=== PATIENT | male | born 1965 | race Caucasian/White ===

== ENCOUNTER → 2019-11-20 | Outpatient (CLI) | payer BC, SELFPAY | END | disposition home or self-care (01) | LOC: LABSPEC 11:52 | PROVIDERS: PCP Podiatrist Foot & Ankle Surgery; Referring Provider Family Medicine; Visit Provider Family Medicine | DX: E11.621 Type 2 diabetes mellitus with foot ulcer (principal); L97.509 Non-pressure chronic ulcer of other part of unspecified foot with unspecified severity | CPT/HCPCS: 87070; 87075; 87077; 87101; 87186; 87205 ==

== ENCOUNTER → 2024-05-09 | Outpatient (CLI) | payer BC, SELFPAY | END | disposition home or self-care (01) | LOC: LABSPEC 10:43 | PROVIDERS: PCP Podiatrist Foot & Ankle Surgery; Referring Provider Podiatrist; Visit Provider Podiatrist | DX: L97.522 Non-pressure chronic ulcer of other part of left foot with fat layer exposed (principal) | CPT/HCPCS: 87070; 87075; 87077; 87186; 87205 ==

== ENCOUNTER → 2024-06-07 | Outpatient (CLI) | payer BC, SELFPAY | END | disposition home or self-care (01) | LOC: LABSPEC 10:33 | PROVIDERS: PCP Podiatrist Foot & Ankle Surgery; Referring Provider Podiatrist; Visit Provider Podiatrist | DX: L97.829 Non-pressure chronic ulcer of other part of left lower leg with unspecified severity (principal) | CPT/HCPCS: 87070; 87077; 87186; 87205 ==

== ENCOUNTER → 2024-12-20 | Outpatient (CLI) | payer BC, SELFPAY | END | disposition home or self-care (01) | LOC: LABSPEC 08:42 | PROVIDERS: PCP Podiatrist Foot & Ankle Surgery; Visit Provider Podiatrist | DX: L97.829 Non-pressure chronic ulcer of other part of left lower leg with unspecified severity (principal) | CPT/HCPCS: 87070; 87077; 87186; 87205 ==

== ENCOUNTER → 2025-06-27 | Outpatient (CLI) | payer BC, SELFPAY | END | disposition home or self-care (01) | LOC: LABSPEC 15:28 | PROVIDERS: PCP Podiatrist Foot & Ankle Surgery; Referring Provider Podiatrist; Visit Provider Podiatrist | DX: L97.522 Non-pressure chronic ulcer of other part of left foot with fat layer exposed (principal) | CPT/HCPCS: 87070; 87077; 87186; 87205 ==

== ENCOUNTER → 2025-09-26 | Outpatient (CLI) | payer BC, SELFPAY ==
--- OUTSIDE RECORDS SUMMARY | 2025-09-26 13:14 | XMS RPT_ITS | CCD ---
Author Organization [facility] Care Team Providers Care Compliance Quality Performance Analyst Name Role Phone SARA VELIZ, BJ Smith Primary Care Physician [phone] WOLF DREW DO Primary Care Physician DAMIAN CORTEZ Primary Care Unavailalex e ROBINSON KUMAR PA-C Attending Unavailab le DREW DO, WOLF E Primary Care Unavailable BJ KRAMER Attending Unavailable Sj DPM, Dr. aSmi Smith Primary Care Provider Francine DPM, Dr. Eid Attending Provider [phone] Ragini Escamilla Attending Unavailable Sami Gustafson Primary Care Unavailable Ragini Escamilla Referring Unavailable Ragini Escamilla Attending Unavailable Sami Gustafson Primary Care Unavailable DREW DO, WOLF E Attending Unavailable DREW DO, WOLF E Primary Care Unavailable DREW DO, WOLF E Attending Unavailable DREW DO, WOLF E Primary Care Unavailable DREW DO, WOLF E Attending Unavailable DREW DO, WOLF E Primary Care Unavailable DREW DO, WOLF E Attending Unavailable DREW DO, WOLF E Primary Care Unavailable DREW DO, WOLF E Attending Unavailable DREW DO, WOLF E Primary Care Unavailable DREW DO, WOLF E Attending Unavailable DREW DO, WOLF E Primary Care Unavailable DREW DO, WOLF E Primary Care Unavailable DREW DO, WOLF E Attending Unavailable DREW DO, WOLF E Primary Care Unavailable DREW DO, WOLF E Attending Unavailable DREW DO, WOLF E Primary Care Unavailable DREW DO, WOLF E Attending Unavailable DREW DO, WOLF E Attending Unavailable DREW DO, WOLF E Primary Care Unavailable Medications Current Medications Medication Drug Class(es) Dates Sig (Normalized) Sig (Original) Blood Glucose Test Machine (10 sources) Start: 10-28-2019 Blood Glucose Test Machine See Instructions, Use as directed Brand type per insurance or patient preference; dx E11.9, # 1 EA, 0 Refill(s), Pharmacy: [facility]/pharmacy #[id number] Start Date: 10/28/19 Status: Ordered Medication Dispense Status: Completed Quantity: 1.0 Unit: EA Total Allowed Fills: 1 Fills Dispensed: 0 Start: 10-28-2019 Blood Glucose Test Machine See Instructions, Use as directed Brand type per insurance or patient preference; dx E11.9, # 1 EA, 0 Refill(s), [id number] Start Date: 10/28/19 Status: Ordered Quantity: 1.0 Unit: EA Repeat number: 1 Start: 10-28-2019 Blood Glucose Test Machine See Instructions, Use as directed Brand type per insurance or patient preference; dx E11.9, # 1 EA, 0 Refill(s), [id number] Start Date: 10/28/19 Status: Ordered Calcium (2 sources) Phosphate Binder, Calcium Start: 04-24-2025 calc ium (as carbonate) 500 mg oral tablet 0 Refill(s) Start Date: 04/24/25 Status: Ordered Medication Dispense Status: Completed Total Allowed Fills: 1 Fills Dispensed: 0 Start: 04-24-2025 calcium (as ca rbonate) 500 mg oral tablet 0 Refill(s) Start Date: 04/24/25 Status: Ordered Repeat number: 1 cephalexin 500 mg oral tablet (3 sources) Cephalosporin Antibacterial Start: 04-24-2025 take 1 tablet by mouth twice daily cephalexin 500 mg oral tablet TAKE 1 TABLET BY MOUTH TWICE A DAY Start Date: 04/24/25 Status: Ordered Medication Dispense Status: Completed Total Allowed Fills: 1 Fills Dispensed: 0 Start: 06-03-2022 End: 06-13-2022 cephalexin 500 mg oral capsu le Dose : 500 mg = 1 cap(s), Oral, QID, X 10 day(s), # 40 cap(s), 0 Refill(s), 06/13/22 7:54:00 EDT, [id number], Infected abrasion of skin of right middle finger, 177.8, cm, 06/03/22 7:27:00 EDT, Height, 82 Start Date: 06/03/22 Stop Date: 06/13/22 Status: Ordered doxycycline hyclate 100 mg oral tablet (2 sources) Tetracycline-class Drug Start: 04-24-2025 take 1 tablet by mouth twice daily DOXYCYCLINE HYCLATE 100 MG TAB DOXYCYCLINE HYCLATE 100 MG TAB, TAKE 1 TABLET BY MOUTH TWICE A DAY Start Date: 04/24/25 Status: Ordered Medication Dispense Status: Completed Total Allowed Fills: 1 Fills Dispensed: 0 empagliflozin 25 mg oral tablet (10 sources) Sodium-Glucose Cotransporter 2 Inhibitor Start: 04-24-2025 Jardiance 25 mg oral tablet Dose : 25 mg = 1 tab(s), Oral, qAM, # 100 tab(s), 1 Refill(s), [id number], 180, cm, 04/24/25 8:24:00 EDT, Height, kg, 04/24/25 8:24:00 EDT, Dosing Weight Start Date: 04/24/25 Status: Ordered Medication Dispense Status: Completed Quantity: 100.0 Unit: tab(s) Total Allowed Fills: 2 Fills Dispensed: 0 Start: 01-23-2025 Jardiance 25 m g oral tablet Dose : 25 mg = 1 tab(s), Oral, qAM, # 100 tab(s), 1 Refill(s), [id number], 178, cm, 01/23/25 11:44:00 EDT, Height, kg, 01/23/25 11:44:00 EDT, Dosing Weight Start Date: 01/23/25 Status: Ordered Quantity: 100.0 Unit: tab(s) Repeat number: 2 Start: 11-20-2024 Jardiance 25 m g oral tablet Dose : 25 mg = 1 tab(s), Oral, qAM, # 30 tab(s), 1 Refill(s), Pharmacy: [facility]/pharmacy #[id number], 181.3, cm, 10/16/24 9:24:00 EST, Height, kg, 10/16/24 9:24:00 EST, Dosing Weight Start Date: 11/20/24 Status: Ordered Quantity: 30.0 Unit: tab(s) Repeat number: 2 Start: 07-18-2024 End: 09-16-2024 Jardiance 10 mg oral tablet Dose : 10 mg = 1 tab(s), Oral, qAM, X 30 day(s), # 30 tab(s), 1 Refill(s), 09/16/24 12:06:00 AM EST, [id number], 180, cm, 09/17/23 10:19:00 EST, Height, kg, 04/17/24 13:55:00 EDT, Dosing Weight Start Date: 07/18/24 Stop Date: 09/16/24 Status: Ordered Start: 07-19-2023 Jardiance 10 m g oral tablet Dose : 10 mg = 1 tab(s), Oral, qAM, # 90 tab(s), 0 Refill(s), [id number], 180, cm, 07/09/23 10:16:00 EDT, Height, kg, 07/09/23 10:16:00 EDT, Dosing Weight Start Date: 07/19/23 Status: Ordered Start: 03-25-2021 take 1 tablet by ruslan th once daily in the morning Jardiance 10 mg oral tablet See Instructions, TAKE 1 TABLET BY MOUTH EVERY DAY IN THE MORNING, # 90 tab(s), 3 Refill(s), [id number], 177.8, cm, 03/09/22 11:33:00 EDT, Height, kg, 03/09/22 11:33:00 EDT, Dosing Weight Start Date: 03/10/22 Status: Ordered FreeStyle Chiquis 3 Sensor (6 sources) Start: 04-17-2024 FreeStyle Libr e 3 Sensor See Instructions, Place once sensor to the back of the upper arm every 14 days. Use reader or phone ethan for daily blood sugar checks. 1 month supply, # 2 EA, 0 Refill(s), [id number], Type 2 diabetes mellitus with hyperlipidemia, 180, cm, 09/17/23 10:19:00 EST, Height, 84.3, kg, 04/17/24 13:55:00 EDT, Dosing Weight Start Date: 04/17/24 Status: Ordered Medication Dispense Status: Completed Quantity: 2.0 Unit: EA Total Allowed Fills: 1 Fills Dispensed: 0 Indications: Type 2 diabetes mellitus with other specified complication; Start: 04-17-2024 FreeStyle Libr e 3 Sensor See Instructions, Place once sensor to the back of the upper arm every 14 days. Use reader or phone ethan for daily blood sugar checks. 1 month supply, # 2 EA, 0 Refill(s), [id number], Type 2 diabetes mellitus with hyperlipidemia, 180, cm, 09/17/23 10:19:00 EST, Height, 84.3, kg, 04/17/24 13:55:00 EDT, Dosing Weight Start Date: 04/17/24 Status: Ordered Quantity: 2.0 Unit: EA Repeat number: 1 Indications: Type 2 diabetes mellitus with other specified complication; Start: 04-17-2024 FreeStyle Libr e 3 Sensor See Instructions, Place once sensor to the back of the upper arm every 14 days. Use reader or phone ethan for daily blood sugar checks. 1 month supply, # 2 EA, 0 Refill(s), [id number], Type 2 diabetes mellitus with hyperlipidemia, 180, cm, 09/17/23 10:19:00 EST, Height, 84.3, kg, 04/17/24 13:55:00 EDT, Dosing Weight Start Date: 04/17/24 Status: Ordered Quantity: 2.0 Unit: EA Repeat number: 1 Indication: Type 2 diabetes mellitus with other specified complication Start: 04-17-2024 FreeStyle Libr e 3 Sensor See Instructions, Place once sensor to the back of the upper arm every 14 days. Use reader or phone ethan for daily blood sugar checks. 1 month supply, # 2 EA, 0 Refill(s), [id number], Type 2 diabetes mellitus with hyperlipidemia, 180, cm, 09/17/23 10:19:00 EST, Height, 84.3, kg, 04/17/24 13:55:00 EDT, Dosing Weight Start Date: 04/17/24 Status: Ordered irbesartan 150 mg oral tablet (5 sources) Angiotensin 2 Receptor Tashi Start: 04-24-2025 irbesartan 150 mg or al tablet Dose : 150 mg = 1 tab(s), Oral, qDay, # 100 tab(s), 1 Refill(s), [id number], 180, cm, 04/24/25 8:24:00 EDT, Height, kg, 04/24/25 8:24:00 EDT, Dosing Weight Start Date: 04/24/25 Status: Ordered Medication Dispense Status: Completed Quantity: 100.0 Unit: tab(s) Total Allowed Fills: 2 Fills Dispensed: 0 Start: 01-23-2025 irbesartan 150 mg oral tablet Dose : 150 mg = 1 tab(s), Oral, qDay, # 100 tab(s), 1 Refill(s), [id number], 178, cm, 01/23/25 11:44:00 EDT, Height, kg, 01/23/25 11:44:00 EDT, Dosing Weight Start Date: 01/23/25 Status: Ordered Quantity: 100.0 Unit: tab(s) Repeat number: 2 Start: 12-05-2024 irbesartan 150 mg oral tablet Dose : 150 mg = 1 tab(s), Oral, qDay, # 30 tab(s), 1 Refill(s), [id number], 181.3, cm, 12/05/24 9:32:00 EST, Height, kg, 12/05/24 9:20:00 EST, Dosing Weight Start Date: 12/05/24 Status: Ordered Quantity: 30.0 Unit: tab(s) Repeat number: 2 lisinopril 10 mg oral tablet (2 sources) Angiotensin Converting Enzyme Inhibitor Start: 04-17-2024 lisinopril 10 mg ora l tablet Dose : 10 mg = 1 tab(s), Oral, qDay, # 100 tab(s), 0 Refill(s), [id number], Hypertension, 180, cm, 09/17/23 10:19:00 EST, Height, kg, 04/17/24 13:55:00 EDT, Dosing Weight Start Date: 04/17/24 Status: Ordered Start: 07-09-2023 lisinopril 10 mg oral tablet Dose : 10 mg = 1 tab(s), Oral, qDay, # 30 tab(s), 3 Refill(s), [id number], Hypertension, 180, cm, 07/09/23 10:16:00 EDT, Height, kg, 07/09/23 10:16:00 EDT, Dosing Weight Start Date: 07/09/23 Status: Ordered magnesium oxide 250 mg oral tablet (2 sources) Start: 04-24-2025 take 1 tablet by mouth once daily Magnesium 250 mg tablet See Instructions, tab(s) mg Oral qDay, 0 Refill(s) Start Date: 04/24/25 Status: Ordered Medication Dispense Status: Completed Total Allowed Fills: 1 Fills Dispensed: 0 metFORMIN hydrochloride 500 mg oral tablet (10 sources) Biguanide Start: 01-23-2025 metFORMIN 500 mg oral tablet (IR) Dose : 1,000 mg = 2 tab(s), Oral, BID, # 400 tab(s), 1 Refill(s), [id number], 178, cm, 01/23/25 11:44:00 EDT, Height, kg, 01/23/25 11:44:00 EDT, Dosing Weight Start Date: 01/23/25 Status: Ordered Medication Dispense Status: Completed Quantity: 400.0 Unit: tab(s) Total Allowed Fills: 2 Fills Dispensed: 0 Start: 08-18-2024 metFORMIN 500 mg oral tablet (IR) Dose : 1,000 mg = 2 tab(s), Oral, BID, # 400 tab(s), 0 Refill(s), [id number], 180.5, cm, 08/18/24 9:53:00 EST, Height, kg, 08/18/24 9:53:00 EST, Dosing Weight Start Date: 08/18/24 Status: Ordered Quantity: 400.0 Unit: tab(s) Repeat number: 1 Start: 04-17-2024 metFORMIN 500 mg oral tablet (IR) Dose : 500 mg = 1 tab(s), Oral, BID, # 200 tab(s), 0 Refill(s), [id number], 180, cm, 09/17/23 10:19:00 EST, Height, kg, 04/17/24 13:55:00 EDT, Dosing Weight Start Date: 04/17/24 Status: Ordered Start: 06-23-2023 metFORMIN 500 mg oral tablet (IR) Dose : 500 mg = 1 tab(s), Oral, BID, # 180 tab(s), 3 Refill(s), Pharmacy: [facility]/pharmacy #[id number], 177.8, cm, 03/31/23 11:22:00 EDT, Height, kg, 03/31/23 11:22:00 EDT, Dosing Weight Start Date: 06/23/23 Status: Ordered Start: 06-03-2022 metFORMIN 500 mg oral tablet (IR) Dose : 500 mg = 1 tab(s), Oral, BID, 0 Refill(s) Start Date: 06/03/22 Status: Ordered Start: 09-23-2021 End: 12-22-2021 metFORMIN 500 mg oral tablet (IR) Dose : 1,500 mg = 3 tab(s), Oral, qDay, 2 tabs in am and 1 tab in pm with meals, # 270 tab(s), 0 Refill(s), Pharmacy: [facility]/pharmacy #[id number], 177.8, cm, 03/25/21 7:47:00 EDT, Height, kg, 03/25/21 7:47:00 EDT, Dosing Weight Start Date: 09/23/21 Stop Date: 12/22/21 Status: Ordered policosanol (5 sources) Start: 12-05-2024 Policosanol Po licosanol, See Instructions, TID, 0 Refill(s), 84.7 Start Date: 12/05/24 Status: Ordered Medication Dispense Status: Completed Total Allowed Fills: 1 Fills Dispensed: 0 Start: 12-05-2024 Policosanol Po licosanol, See Instructions, TID, 0 Refill(s), 84.7 Start Date: 12/05/24 Status: Ordered Repeat number: 1 sulfamethoxazole 800 mg / trimethoprim 160 mg oral tablet (1 source) Dihydrofolate Reductase Inhibitor Antibacterial, Sulfonamide Antimicrobial Start: 06-03-2022 End: 06-13-2022 take 1 tablet by mouth twice daily Bactrim DS 800 mg-160 mg oral tablet Dose = 1 tab(s), Oral, BID, X 10 day(s), # 20 tab(s), 0 Refill(s), Pharmacy: [facility]/pharmacy #[id number], 177.8, cm, 06/03/22 7:27:00 EDT, Height, 82 Start Date: 06/03/22 Stop Date: 06/13/22 Status: Ordered Vitamin D3 (2 sources) Start: 04-24-2025 Vitamin D3 See Instructions, qDay, 0 Refill(s) Start Date: 04/24/25 Status: Ordered Medication Dispense Status: Completed Total Allowed Fills: 1 Fills Dispensed: 0 Start: 04-24-2025 Vitamin D3 See Instructions, qDay, 0 Refill(s) Start Date: 04/24/25 Status: Ordered Repeat number: 1 Webcol Alcohol Preps 70% topical pad (10 sources) Start: 04-17-2024 apply 70 doses topically once Webcol Alcohol Preps 70% topical pad See Instructions, test BGT 1x/d, dispense #50, 11 refills; dx E11.9, # 50 EA, 0 Refill(s), [id number], 180, cm, 09/17/23 10:19:00 EST, Height, kg, 04/17/24 13:55:00 EDT, Dosing Weight Start Date: 04/17/24 Status: Ordered Medication Dispense Status: Completed Quantity: 50.0 Unit: EA Total Allowed Fills: 1 Fills Dispensed: 0 Start: 04-17-2024 Webcol Alcohol Preps 70% topical pad See Instructions, test BGT 1x/d, dispense #50, 11 refills; dx E11.9, # 50 EA, 0 Refill(s), [id number], 180, cm, 09/17/23 10:19:00 EST, Height, kg, 04/17/24 13:55:00 EDT, Dosing Weight Start Date: 04/17/24 Status: Ordered Quantity: 50.0 Unit: EA Repeat number: 1 Start: 04-17-2024 Webcol Alcohol Preps 70% topical pad See Instructions, test BGT 1x/d, dispense #50, 11 refills; dx E11.9, # 50 EA, 0 Refill(s), [id number], 180, cm, 09/17/23 10:19:00 EST, Height, kg, 04/17/24 13:55:00 EDT, Dosing Weight Start Date: 04/17/24 Status: Ordered Start: 10-28-2019 Webcol Alcohol Preps 70% topical pad See Instructions, test BGT 1x/d, dispense #50, 11 refills; dx E11.9, # 50 EA, 0 Refill(s), Pharmacy: [facility]/pharmacy #[id number] Start Date: 10/28/19 Status: Ordered Zinc (2 sources) Start: 04-24-2025 Zinc Daily, 0 Refill(s) Start Date: 04/24/25 Status: Ordered Medication Dispense Status: Completed Total Allowed Fills: 1 Fills Dispensed: 0 Start: 04-24-2025 Zinc Daily, 0 Refill(s) Start Date: 04/24/25 Status: Ordered Repeat number: 1 Problems Active Problems Problem Classification Problem Date Documented Date Episodic/Chronic Chronic ulcer of skin (2 sources) Non-pressure chronic ulcer of other part of left foot with fat layer exposed; Translations: [Non-pressure chronic ulcer of other part of left lower leg with unspecified severity] Onset: 5 Chronic Diabetes mellitus with complications (6 sources) Complication due to diabetes mellitus; Translations: [Type 2 diabetes mellitus with other specified complication] Onset: 5 Chronic Diabetes mellitus without complication (11 sources) Diabetes mellitus; Translations: [Type 2 diabetes mellitus] 12-06-2019 Chronic Disorders of lipid metabolism (6 sources) Pure hypercholesterolemia 04-17-2024 Chroni c Essential hypertension (9 sources) Essential hypertension; Translations: [Hypertensive disorder] Onset: 5 04-17-2024 Chronic Other aftercare (1 source) Long-term current use of oral hypoglycemic medication; 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] Episodic Other aftercare (1 source) Long-term current use of drug therapy; Translations: [Other meterman (current) drug therapy] Episodic Other aftercare (1 source) Drug monitoring done; Translations: [Encounter for therapeutic drug level monitoring] Episodic Other ear and sense organ disorders (7 sources) Impacted cerumen 03-31-2023 Episodic Other eye disorders (2 sources) Hemorrhage of right vitreous body 04-24-2025 Chronic Other screening for suspected conditions (not mental disorders or infectious disease) (3 sources) Encounter for screening for malignant neoplasm of colon; Translations: [Viral screening status] Onset: 3 Episodic Retinal detachments; defects; vascular occlusion; and retinopathy (2 sources) 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 04-24-2025 Chronic Unclassified (14 sources) Patient encounter status 03-31-2023 Past or Other Problems Problem Classification Problem Date Documented Da te Episodic/Chronic Fluid and electrolyte disorders (6 sources) Hyperkalemia; Translations: [Hyperkalemia] Onset: 04-24-2025 01-23-2025 Episodic Genitourinary symptoms and ill-defined conditions (6 sources) Grade A3 albuminuria; Translations: [Proteinuria, unspecified] Onset: 04-24-2025 01-23-2025 Episodic Other aftercare (1 source) [facility] (current) use of oral hypoglycemic drugs; 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] Onset: 03-09-2025 Episodic Other aftercare (1 source) Other meterman (current) drug therapy; Translations: [Other meterman (current) drug therapy] Onset: 03-09-2025 Episodic Other aftercare (1 source) Encounter for therapeutic drug level monitoring; Translations: [Encounter for therapeutic drug level monitoring] Onset: 03-09-2025 Episodic Results Test Name Value Interpretation Reference Range Facility Wound Cultureon 06-29-2025 WC Staphylococcus aureu s Amount Growth 3+ Staphylococcus aureus: REACTION cefOXitin Susc Islt Doxycycline Islt YESICA >=16 R Clindamycin Islt YESICA 0.25 S Clindamycin.induced Susc Islt NEG Erythromycin Islt YESICA <=0.25 S Gentamicin Islt YESICA <=0.5 S Linezolid Islt YESICA 2 S Moxifloxacin Islt YSEICA <=0.25 S Oxacillin Susc Islt <=0.25 S Tetracycline Islt YESICA >=16 R TMP SMX Islt YESICA <=10 S Vancomycin Islt YESICA 1 S Normal [facility] Comment on above: Performed By: #### M 100.3000, #### [facility] [address] [place], [place], [id number] Gram Stainon 06-28-2025 GS Gram Stain Rare Epithelial cells Rare Gram positive cocci Rare White Blood Cells Normal [facility] Comment on above: Performed By: #### M 100.3000, #### [facility] [address] [place], [place], [address] .GFRon 04-24-2025 Estimated Glomerular Filtration Rate 92 ml/min/1.73sqm Normal [facility] Comment on above: Result Comment: Stages of Chronic Kidney Disease (CKD) Stage Description eGFR(ml/min/1.73 sq.m.) CKD 1 Normal kidney function or >=90 normal kindney function with possible kidney damage (ex. Proteinuria) CKD 2 Kidney damage with mild loss 60-89 of kidney function CKD 3a Mild to moderate loss of kidney 45-59 function CKD 3b Moderate to severe loss of 30-44 of kindey function CKD 4 Severe loss of kidney function 15-29 CKD 5 Kidney failure <15 Note: (go live 2024) the eGFR calculation was updated to the 2020 CKD-EPI creatinine equation without a race factor to calculate the eGFR results. Performed By: #### 1 [id number] #### [place] [address] #### CPEP #### [address] [address] BMPon 04-24-2025 BUN/Creatinine Ratio 41 ratio High 7-27 [facility] Comment on above: Performed By: #### 1 [id number] #### [place] [address] #### CPEP #### [address] [address] Calcium [Mass/Vol] 9.4 mg/dL Normal 8.4-10.2 [facility] Comment on above: Performed By: #### 1 [id number] #### [place] [address] #### CPEP #### [address] [address] Chloride [Moles/Vol] 103 mmol/L Normal 98-107 [facility] Comment on above: Performed By: #### 1 [id number] #### [place] [address] #### CPEP #### [address] [address] CO2 [Moles/Vol] 25 mmol/L Normal 22-29 [facility] Comment on above: Performed By: #### 1 [id number] #### [address] [place] [address] #### CPEP #### [address] [address] Creatinine [Mass/Vol] 0.96 mg/dL Normal 0.67-1.17 [facility] Comment on above: Performed By: #### 1 [address]9743 #### [address] [address] #### CPEP #### [address] [address] Electrolyte Balance 11.0 mEq/L Normal 4.0-15.0 [facility] Comment on above: Performed By: #### 1 [id number] #### [place] [address] #### CPEP #### [address] [address] Glucose [Mass/Vol] 140 mg/dL High 70-105 [facility] Comment on above: Performed By: #### 1 [id number] #### [place] [address] #### CPEP #### [address] [address] Potassium [Moles/Vol] 4.7 mmol/L Normal 3.5-5.1 [facility] Comment on above: Performed By: #### 1 [id number] #### [place] [address] #### CPEP #### [address] [address] Sodium [Moles/Vol] 139 mmol/L Normal 136-145 [facility] Comment on above: Performed By: #### 1 [address]1410 #### [place] [address] #### CPEP #### [address] [address] Urea nitrogen [Mass/Vol] 39 mg/dL High 7-18 [facility] Comment on above: Performed By: #### 1 [id number] #### [address], [place] [address] #### CPEP #### [facility] [address] [place] [address] LABORATORYOrdered By: [employer] on 04-24-2025 Calcium [Mass/Vol] 9.4 mg/dL Normal 8.4 - 10. 2 mg/dL AO ADM SS Chloride [Moles/Vol] 103 mmol/L Normal 98 - 10 7 mmol/L AO [facility] CO2 [Moles/Vol] 25 mmol/L Normal 22 - 29 mmol/L [facility] Creatinine [Mass/Vol] 0.96 mg/dL Normal 0.67 - 1.17 mg/dL AO [facility] Electrolyte Balance 11.0 mEq/L Normal 4.0 - 15 .0 mEq/L AO [facility] Estimated Glomerular Filtration Rate 92 ml/min/1.73sqm Invalid Interpretation Code AO Chemistry S Comment on above: Interpretive Data: Stages of Chronic Kidney Disease (CKD) Stage Description eGFR(ml/min/1.73 sq.m.) CKD 1 Normal kidney function or >=90 normal kindney function with possible kidney damage (ex. Proteinuria) CKD 2 Kidney damage with mild loss 60-89 of kidney function CKD 3a Mild to moderate loss of kidney 45-59 function CKD 3b Moderate to severe loss of 30-44 of kindey function CKD 4 Severe loss of kidney function 15-29 CKD 5 Kidney failure <15 Note: (go live 2024) the eGFR calculation was updated to the 2020 CKD-EPI creatinine equation without a race factor to calculate the eGFR results. Glucose [Mass/Vol] 140 mg/dL High 70 - 105 mg/dL [facility] Potassium [Moles/Vol] 4.7 mmol/L Normal 3.5 - 5.1 mmol/L AO [facility] Sodium [Moles/Vol] 139 mmol/L Normal 136 - 145 mmol/L AO [facility] Urea nitrogen [Mass/Vol] 39 mg/dL High 7 - 18 mg/dL [facility] Urea nitrogen/Creatinine [Mass ratio] 41 ratio High 7 - 27 ratio AO ADM SS LABORATORYOrdered By: Emani allison on 03-09-2025 Glucose [Mass/Vol] 205 mg/dL High 70 - 110 mg/dL [facility] HbA1c (Bld) [Mass fraction] 7.6 % [facility] Performed By Emani Lua PharmD [facility] Performing Location [facility] LABORATORYOrdered By: Cas Freeman on 02-27-2025 Cholesterol [Mass/Vol] 241 mg/dL High 0 - 200 mg/dL AO [facility] Comment on above: Interpretive Data: C holesterol Reference Interval: Less than 200 Desirable 200-239 Borderline high risk 240 and above High risk Cholesterol in HDL [Mass/Vol] 74 mg/dL High 40 - 60 mg/dL [facility] Cholesterol in LDL [Mass/Vol] 149 mg/dL High 0 - 130 mg/dL AO [facility] SS Triglyceride [Mass/Vol] 89 mg/dL Normal 0 - 150 mg/dL AO [facility] SS Comment on above: Interpretive Data: T riglyceride Reference Interval: Less than 150 Normal 150-199 Borderline high risk 200-499 High risk 500 or higher Very high risk LIPIDon 02-27-2025 Cholesterol [Mass/Vol] 241 mg/dL High 0-200 [facility] Comment on above: Result Comment: Chol esterol Reference Interval: Less than 200 Desirable 200-239 Borderline high risk 240 and above High risk Performed By: #### 1 27320 #### [address] [address] #### CPEP #### [address] [address] Cholesterol in HDL [Mass/Vol] 74 mg/dL High 40-60 [facility] Comment on above: Performed By: #### 1 91175 #### [address] [address] #### CPEP #### [address] [address] Cholesterol in LDL [Mass/Vol] 149 mg/dL High 0-130 [facility] Comment on above: Performed By: #### 1 99990 #### [address] [address] #### CPEP #### [address] [address] Triglyceride [Mass/Vol] 89 mg/dL Normal 0-150 [facility] Comment on above: Result Comment: Trig lyceride Reference Interval: Less than 150 Normal 150-199 Borderline high risk 200-499 High risk 500 or higher Very high risk Performed By: #### 1 37390 #### [address] [address] #### CPEP #### [address] [address] LABORATORYOrdered By: Ivan Nguyen on 01-23-2025 Glucose [Mass/Vol] 141 mg/dL High 70 - 110 mg/dL [facility] LABORATORYOrdered By: Cas Chester on 01-23-2025 Blood Glucose Frequency Daily (01/23/25 8:07 AM) [facility] LIPOAon 01-15-2025 Lipoprotein a [Moles/Vol] 9.6 nmol/L Normal <75.0 [facility] Comment on above: Result Comment: Note : Values greater than or equal to 75.0 nmol/L may indicate an independent risk factor for CHD, but must be evaluated with caution when applied to non- populations due to the influence of genetic factors on Lp(a) across ethnicities. Performed At: [facility] [id number] Ankur Babcock PhD Ph:[phone] Performed By: #### 1 18352 #### [address] [address] #### CPEP #### [address] [address] .GFRon 01-13-2025 Estimated Glomerular Filtration Rate 47 ml/min/1.73sqm Normal [facility] Comment on above: Result Comment: Stages of Chronic Kidney Disease (CKD) Stage Description eGFR(ml/min/1.73 sq.m.) CKD 1 Normal kidney function or >=90 normal kindney function with possible kidney damage (ex. Proteinuria) CKD 2 Kidney damage with mild loss 60-89 of kidney function CKD 3a Mild to moderate loss of kidney 45-59 function CKD 3b Moderate to severe loss of 30-44 of kindey function CKD 4 Severe loss of kidney function 15-29 CKD 5 Kidney failure <15 Note: (go live 2024) the eGFR calculation was updated to the 2020 CKD-EPI creatinine equation without a race factor to calculate the eGFR results. Performed By: #### 1 23437 #### [address] [address] #### CPEP #### [address] [address] [facility] BUN/Creatinine Ratio 25 ratio Normal 7-27 [facility] Comment on above: Performed By: #### 1 46675 #### [place] [address] #### CPEP #### [address] [address] Calcium [Mass/Vol] 10.0 mg/dL Normal 8.4-10.2 [facility] Comment on above: Performed By: #### 1 02217 #### [address] [address] #### CPEP #### [address] [address] Chloride [Moles/Vol] 103 mmol/L Normal 98-107 [facility] Comment on above: Performed By: #### 1 56167 #### [address] [address] #### CPEP #### [address] [address] CO2 [Moles/Vol] 22 mmol/L Normal 22-29 [facility] Comment on above: Performed By: #### 1 13398 #### [address] [address] #### CPEP #### [address] [address] Creatinine [Mass/Vol] 1.69 mg/dL High 0.70-1.30 [facility] Comment on above: Result Comment: Test ing performed on Siemens Dimension EXL analyzer using a modified kinetic Julia technique. Performed By: #### 1 75457 #### [address] [address] #### CPEP #### [address] [address] Electrolyte Balance 12.0 mEq/L Normal 4.0-15.0 [facility] Comment on above: Performed By: #### 1 55263 #### [address] [address] #### CPEP #### [address] [address] Glucose [Mass/Vol] 164 mg/dL High 70-105 [facility] Comment on above: Performed By: #### 1 92022 #### [place] [address] #### CPEP #### [address] [address] Potassium [Moles/Vol] 5.5 mmol/L High 3.5-5.1 [facility] Comment on above: Performed By: #### 1 24540 #### [address] [address] #### CPEP #### [address] [address] Sodium [Moles/Vol] 137 mmol/L Normal 136-145 [facility] Comment on above: Performed By: #### 1 68492 #### [address] [address] #### CPEP #### [address] [address] Urea nitrogen [Mass/Vol] 42 mg/dL High 7-18 [facility] Comment on above: Performed By: #### 1 28711 #### [place] [address] #### CPEP #### [address] [address] LIPIDon 01-13-2025 Cholesterol [Mass/Vol] 295 mg/dL High 0-200 [facility] Comment on above: Result Comment: Chol esterol Reference Interval: Less than 200 Desirable 200-239 Borderline high risk 240 and above High risk Performed By: #### 1 99024 #### [address] [address] #### CPEP #### [address] [address] Cholesterol in HDL [Mass/Vol] 100 mg/dL High 40-60 [facility] Comment on above: Performed By: #### 1 58537 #### [place] [address] #### CPEP #### [address] [address] Cholesterol in LDL [Mass/Vol] 176 mg/dL High 0-130 [facility] Comment on above: Performed By: #### 1 28586 #### [place] [address] #### CPEP #### [address] [address] Triglyceride [Mass/Vol] 95 mg/dL Normal 0-150 [facility] Comment on above: Result Comment: Trig lyceride Reference Interval: Less than 150 Normal 150-199 Borderline high risk 200-499 High risk 500 or higher Very high risk Performed By: #### 1 93443 #### [place] [address] #### CPEP #### [address] [address] Wound Cultureon 12-23-2024 WC Staphylococcus aureu s Amount Growth 1+ Streptococcus group B Streptococcus group B Staphylococcus aureus: REACTION cefOXitin Susc Islt NEG Doxycycline Islt YESICA <=0.5 Clindamycin Islt YESICA 0.25 S Clindamycin.induced Susc Islt NEG Erythromycin Islt YESICA <=0.25 S Gentamicin Islt YESICA <=0.5 S Linezolid Islt YESICA 2 S Moxifloxacin Islt YESICA <=0.25 S Oxacillin Susc Islt <=0.25 S Tetracycline Islt YESICA <=1 S TMP SMX Islt YESICA <=10 S Vancomycin Islt YESICA <=0.5 S Streptococcus group B: REACTION Ampicillin Islt YESICA <=0.25 S Cefotaxime Islt YESICA <=0.12 cefTRIAXone Islt YESICA <=0.12 S Clindamycin Islt YESICA >=1 R Erythromycin Islt YESICA >=8 R Linezolid Islt YESICA <=2 S Vancomycin Islt YESICA 0.5 S Normal [facility] Comment on above: Performed By: #### M 100.1999, M100.3000 #### [facility] [address] [place], [address] Gram Stainon 12-21-2024 GS Gram Stain 4+ Red Blood Cells 1+ White Blood Cells No organisms seen Normal [facility] Comment on above: Performed By: #### M 100.1999, M100.3000 #### [facility] [address] [place], [address] Gram stainOrdered By: Ragini Escamilla on 12-20-2024 Microscopic observation Gram stain Nom (Unsp spec) [facility] Routine wound cultureOrdered By: Ragini Escamilla on 12-20-2024 Wound Culture Staphylococcus aureus Abnormal [facility] Wound Culture Streptococcus group B Abnormal [facility] TFTESTon 12-12-2024 Free Testost Direct 10.4 pg/mL Normal 7.2-24.0 [facility] Comment on above: Result Comment: Perf ormed At: [facility] [address] [place] [place], [place] [id number] Hardeep Aguayo MD Ph:[phone] Performed At: [facility] [place] [address] [place], [place] [id number] Ankur Babcock PhD Ph:[phone] Performed By: #### 1 40556 #### [address] [address] Testosterone Lvl 476 ng/dL Normal 264-916 [facility] Comment on above: Result Comment: Adul t male reference interval is based on a population of healthy nonobese males (BMI <30) between 19 and 39 years old. Tony, et.al. JCEM 2017,102;5029-7633. PMID: [id number]. Performed By: #### 1 76407 #### [place] [address] LABORATORYOrdered By: Emani allison on 12-11-2024 Glucose [Mass/Vol] 162 mg/dL High 70 - 110 mg/dL [facility] [id number] 12-08-2024 MARGARITO-65 <5.0 Normal 0.0-5.0 [facility] Comment on above: Result Comment: Perf ormed At: [facility] [address] [id number] Hardeep Aguayo MD Ph:[phone] Performed By: #### 1 62216 #### [place] [address] #### CPEP #### [address] [address] MALBRon 12-06-2024 U Creatinine 57.9 mg/dL Normal [facility] Comment on above: Performed By: #### 1 05416 #### [place] [address] #### CPEP #### [address] [address] U Microalb 749.7 mg/L Normal [facility] Comment on above: Performed By: #### 1 82896 #### [address] [address] #### CPEP #### [facility] [address] [place] [address] U Ratio Alb/Cre 1295 mg/G High 0-30 [facility] Comment on above: Performed By: #### 1 00942 #### [address] [address] #### CPEP #### [address] [address] CPEPon 12-05-2024 C-Peptide 1.90 ng/mL Normal 0.81-3.85 [facility] Comment on above: Performed By: #### 1 87425 #### [address] [address] #### CPEP #### [address] [address] LABORATORYOrdered By: SYSTEM SYSTEM on 12-05-2024 C peptide [Mass/Vol] 1.90 ng/mL Normal 0.81 - 3.85 ng/mL AH ADM SS .Auto Diffon 08-07-2024 Basophil, Absolute 0.0 10 3/mcL Normal 0.0-0.2 [facility] Comment on above: Performed By: #### A TEJAS, ADIFF, CBC, PSA, TSHR, LIPID, GFR, CMP, A1C #### [address] [address] Basophils/100 WBC (Bld) 0.6 % Normal 0.0-2.5 [facility] Comment on above: Performed By: #### A TEJAS, ADIFF, CBC, PSA, TSHR, LIPID, GFR, CMP, A1C #### [address] [address] Eosinophil, Absolute 0.3 10 3/mcL Normal 0.0-0.[address] [facility] Comment on above: Performed By: #### A TEJAS, ADIFF, CBC, PSA, TSHR, LIPID, GFR, CMP, A1C #### [address] [address] Eosinophils/100 WBC (Bld) 4.0 % Normal 0.0-7.0 [facility] Comment on above: Performed By: #### A TEJAS, ADIFF, CBC, PSA, TSHR, LIPID, GFR, CMP, A1C #### [address] [address] Lymphocyte, Absolute 1.9 10 3/mcL Normal 0.9-4.[address] [facility] Comment on above: Performed By: #### A TEJAS, ADIFF, CBC, PSA, TSHR, LIPID, GFR, CMP, A1C #### [address] [address] Lymphocytes/100 WBC (Bld) 27.0 % Normal 20.0-40.0 [facility] Comment on above: Performed By: #### A TEJAS, ADIFF, CBC, PSA, TSHR, LIPID, GFR, CMP, A1C #### [address] [address] Monocyte, Absolute 0.7 10 3/mcL Normal 0.1-1.4 [facility] Comment on above: Performed By: #### A TEJAS, ADIFF, CBC, PSA, TSHR, LIPID, GFR, CMP, A1C #### [address] [address] Monocytes/100 WBC (Bld) 9.7 % Normal 2.0-13.0 [facility] Comment on above: Performed By: #### A TEJAS, ADIFF, CBC, PSA, TSHR, LIPID, GFR, CMP, A1C #### [address] [address] Neutrophils/100 WBC (Bld) 58.7 % Normal 50.0-75.0 [facility] Comment on above: Performed By: #### A TEJAS, ADIFF, CBC, PSA, TSHR, LIPID, GFR, CMP, A1C #### [address] [address] .GFRon 08-07-2024 GFR 98 ml/min/1.73sqm Normal [facility] Comment on above: Result Comment: GFR Population mean for , Non- Americans Ages 20-29 = 116 mL/min/1.73 sq.m. Ages 30-39 = 107 mL/min/1.73 sq.m. Ages 40-49 = 99 mL/min/1.73 sq.m. Ages 50-59 = 93 mL/min/1.73 sq.m. Ages 60-69 = 85 mL/min/1.73 sq.m. Ages 70+ = 75 mL/min/1.73 sq.m. Chronic Kidney Disease: Less than 60 mL/min/1.73 square meters End Stage Renal Disease: Less than 15 mL/min/1.73 square meters Performed By: #### A TEJAS, ADIFF, CBC, PSA, TSHR, LIPID, GFR, CMP, A1C #### [address] [address] GFR Non- 81 ml/min/1.73sqm Normal [facility] Comment on above: Result Comment: GFR Population mean for , Non- Americans Ages 20-29 = 116 mL/min/1.73 sq.m. Ages 30-39 = 107 mL/min/1.73 sq.m. Ages 40-49 = 99 mL/min/1.73 sq.m. Ages 50-59 = 93 mL/min/1.73 sq.m. Ages 60-69 = 85 mL/min/1.73 sq.m. Ages 70+ = 75 mL/min/1.73 sq.m. Chronic Kidney Disease: Less than 60 mL/min/1.73 square meters End Stage Renal Disease: Less than 15 mL/min/1.73 square meters Performed By: #### A TEJAS, ADIFF, CBC, PSA, TSHR, LIPID, GFR, CMP, A1C #### [address] [address] .NEUABSon 08-07-2024 Neutrophil, Absolute 4.1 10 3/mcL Normal 2.3-8.[address] [facility] Comment on above: Performed By: #### A TEJAS, ADIFF, CBC, PSA, TSHR, LIPID, GFR, CMP, A1C #### [address] [address] A1Con 08-07-2024 Glucose [Mass/Vol] 192 mg/dL Normal [facility] Comment on above: Result Comment: Bell mated Average Glucose calculated by equation ((28.7xA1C)-46.7) Estimated average glucose (eAG) is a calculated value from Hemoglobin A1C and is media sales representative of the average blood glucose level in the last 2-3 month period. Normal range: less than 114 mg/dL Performed By: #### 1 33451 #### [address] [address] #### CPEP #### [address] [address] HbA1c (Bld) [Mass fraction] 8.3 % High 4.3-6.4 [facility] Comment on above: Performed By: #### 1 19037 #### [address] [address] #### CPEP #### [address] [address] CBCon 08-07-2024 Erythrocyte distribution width (RBC) [Ratio] 15.0 % Normal 11.5-15.5 [facility] Comment on above: Performed By: #### A TEJAS, ADIFF, CBC, PSA, TSHR, LIPID, GFR, CMP, A1C #### [address] [address] Hematocrit (Bld) [Volume fraction] 41.5 % Normal 40.0-52.0 [facility] Comment on above: Performed By: #### A TEJAS, ADIFF, CBC, PSA, TSHR, LIPID, GFR, CMP, A1C #### [address] [address] Hgb 13.6 G/dL Normal 13.0-17.5 [facility] Comment on above: Performed By: #### A TEJAS, ADIFF, CBC, PSA, TSHR, LIPID, GFR, CMP, A1C #### [address] [address] MCH (RBC) [Entitic mass] 26.5 pg Low 27.0-33.0 [facility] Comment on above: Performed By: #### A TEJAS, ADIFF, CBC, PSA, TSHR, LIPID, GFR, CMP, A1C #### [address] [address] MCHC 32.7 G/dL Normal 32.0-36.0 [facility] Comment on above: Performed By: #### A TEJAS, ADIFF, CBC, PSA, TSHR, LIPID, GFR, CMP, A1C #### [address] [address] MCV (RBC) [Entitic vol] 80.9 fL Low 81.0-100.0 [facility] Comment on above: Performed By: #### A TEJAS, ADIFF, CBC, PSA, TSHR, LIPID, GFR, CMP, A1C #### [address] [address] Platelet 278 10 3/mcL Normal 150-450 [facility] Comment on above: Performed By: #### A TEJAS, ADIFF, CBC, PSA, TSHR, LIPID, GFR, CMP, A1C #### [address] [address] Platelet mean volume (Bld) [Entitic vol] 8.7 fL Normal 6.4-10.5 [facility] Comment on above: Performed By: #### A TEJAS, ADIFF, CBC, PSA, TSHR, LIPID, GFR, CMP, A1C #### [address] [address] RBC 5.14 10 6/mcL Normal 4.50-6.00 [facility] Comment on above: Performed By: #### A TEJAS, ADIFF, CBC, PSA, TSHR, LIPID, GFR, CMP, A1C #### [address] [address] WBC 6.9 10 3/mcL Normal 4.5-10.8 [facility] Comment on above: Performed By: #### A TEJAS, ADIFF, CBC, PSA, TSHR, LIPID, GFR, CMP, A1C #### [address] [address] CMPon 08-07-2024 Albumin Level 3.8 G/dL Normal 3.5-5.0 [facility] Comment on above: Performed By: #### A TEJAS, ADIFF, CBC, PSA, TSHR, LIPID, GFR, CMP, A1C #### [address] [address] Albumin/Globulin [Mass ratio] 1.2 {ratio} Normal 1.1-2.5 [facility] Comment on above: Performed By: #### A TEJAS, ADIFF, CBC, PSA, TSHR, LIPID, GFR, CMP, A1C #### [place] [address] ALP [Catalytic activity/Vol] 52 U/L Normal 40-135 [facility] Comment on above: Performed By: #### A TEJAS, ADIFF, CBC, PSA, TSHR, LIPID, GFR, CMP, A1C #### [place] [address] ALT [Catalytic activity/Vol] 20 U/L Normal 16-63 [facility] Comment on above: Performed By: #### A TEJAS, ADIFF, CBC, PSA, TSHR, LIPID, GFR, CMP, A1C #### [place] [address] AST [Catalytic activity/Vol] 11 U/L Normal 10-40 [facility] Comment on above: Performed By: #### A TEJAS, ADIFF, CBC, PSA, TSHR, LIPID, GFR, CMP, A1C #### [place] [address] Bili Total 0.4 mg/dL Normal 0.2-1.0 [facility] Comment on above: Result Comment: Use of this assay is not recommended for patients undergoing treatment with eltrombopag due to the potential for falsely elevated results. Performed By: #### A TEJAS, ADIFF, CBC, PSA, TSHR, LIPID, GFR, CMP, A1C #### [place] [address] BUN/Creatinine Ratio 32 ratio High 7-27 [facility] Comment on above: Performed By: #### A TEJAS, ADIFF, CBC, PSA, TSHR, LIPID, GFR, CMP, A1C #### [place] [address] Calcium [Mass/Vol] 9.4 mg/dL Normal 8.4-10.2 [facility] Comment on above: Performed By: #### A TEJAS, ADIFF, CBC, PSA, TSHR, LIPID, GFR, CMP, A1C #### [address] [address] Chloride [Moles/Vol] 103 mmol/L Normal 98-107 [facility] Comment on above: Performed By: #### A TEJAS, ADIFF, CBC, PSA, TSHR, LIPID, GFR, CMP, A1C #### [address] [address] CO2 [Moles/Vol] 31 mmol/L High 22-29 [facility] Comment on above: Performed By: #### A TEJAS, ADIFF, CBC, PSA, TSHR, LIPID, GFR, CMP, A1C #### [address] [address] Creatinine [Mass/Vol] 0.96 mg/dL Normal 0.70-1.30 [facility] Comment on above: Result Comment: Test ing performed on Siemens Dimension EXL analyzer using a modified kinetic Julia technique. Performed By: #### A TEJAS, ADIFF, CBC, PSA, TSHR, LIPID, GFR, CMP, A1C #### [address] [address] Electrolyte Balance 3.0 mEq/L Low 4.0-15.0 [facility] Comment on above: Performed By: #### A TEJAS, ADIFF, CBC, PSA, TSHR, LIPID, GFR, CMP, A1C #### [address] [address] Globulin 3.1 G/dL Normal [facility] Comment on above: Performed By: #### A TEJAS, ADIFF, CBC, PSA, TSHR, LIPID, GFR, CMP, A1C #### [address] [address] Glucose [Mass/Vol] 189 mg/dL High 70-105 [facility] Comment on above: Performed By: #### A TEJAS, ADIFF, CBC, PSA, TSHR, LIPID, GFR, CMP, A1C #### [address] [address] Potassium [Moles/Vol] 4.7 mmol/L Normal 3.5-5.1 [facility] Comment on above: Performed By: #### A TEJAS, ADIFF, CBC, PSA, TSHR, LIPID, GFR, CMP, A1C #### [address] [address] Sodium [Moles/Vol] 137 mmol/L Normal 136-145 [facility] Comment on above: Performed By: #### A TEJAS, ADIFF, CBC, PSA, TSHR, LIPID, GFR, CMP, A1C #### [place] [address] [place], [place] [address] Total Protein 6.9 G/dL Normal 6.4-8.2 [facility] Comment on above: Performed By: #### A TEJAS, ADIFF, CBC, PSA, TSHR, LIPID, GFR, CMP, A1C #### [place] [address] [place], [place] [address] Urea nitrogen [Mass/Vol] 31 mg/dL High 7-18 [facility] Comment on above: Performed By: #### A TEJAS, ADIFF, CBC, PSA, TSHR, LIPID, GFR, CMP, A1C #### [address] [address] LABORATORYOrdered By: SYSTEM SYSTEM on 08-07-2024 Albumin BCP dye [Mass/Vol] 3.8 G/dL Normal 3.5 - 5.0 G/dL AO ADM SS Albumin/Globulin [Mass ratio] 1.2 {ratio} Normal 1.1 - 2.5 ratio AO ADM SS ALP [Catalytic activity/Vol] 52 U/L Normal 40 - 135 U/L AO ADM SS ALT With P-5'-P [Catalytic activity/Vol] 20 U/L Normal 16 - 63 U/L AO ADM SS AST With P-5'-P [Catalytic activity/Vol] 11 U/L Normal 10 - 40 U/L AO ADM SS Basophils (Bld) [#/Vol] 0.0 103/mcL Normal 0.0 - 0.2 10^3/mcL AO Workflow SS Basophils/100 WBC (Bld) 0.6 % Normal 0.0 - 2.5 % AO Workflow SS Bilirubin [Mass/Vol] 0.4 mg/dL Normal 0.2 - 1 .0 mg/dL AO ADM SS Comment on above: Interpretive Data: U se of this assay is not recommended for patients undergoing treatment with eltrombopag due to the potential for falsely elevated results. Calcium [Mass/Vol] 9.4 mg/dL Normal 8.4 - 10. 2 mg/dL AO ADM SS Chloride [Moles/Vol] 103 mmol/L Normal 98 - 10 7 mmol/L AO ADM SS CO2 [Moles/Vol] 31 mmol/L High 22 - 29 mmol/L AO ADM SS Creatinine [Mass/Vol] 0.96 mg/dL Normal 0.70 - 1.30 mg/dL AO ADM SS Comment on above: Interpretive Data: T esting performed on Siemens Dimension EXL analyzer using a modified kinetic Julia technique. Electrolyte Balance 3.0 mEq/L Low 4.0 - 15 .0 mEq/L AO ADM SS Eosinophil, Absolute 0.3 103/mcL Normal 0.0 - 0 .7 10^3/mcL AO Workflow SS Eosinophils/100 WBC (Bld) 4.0 % Normal 0.0 - 7.0 % AO Workflow SS Erythrocyte distribution width (RBC) [Ratio] 15.0 % Normal 11.5 - 15.5 % AO Workflow SS GFR/1.73 sq M.predicted among blacks MDRD (S/P/Bld) [Vol rate/Area] 98 ml/min/1.73sqm Invalid Interpretation Code AO Chemistry S Comment on above: Interpretive Data: GFR Population mean for , Non- Americans Ages 20-29 = 116 mL/min/1.73 sq.m. Ages 30-39 = 107 mL/min/1.73 sq.m. Ages 40-49 = 99 mL/min/1.73 sq.m. Ages 50-59 = 93 mL/min/1.73 sq.m. Ages 60-69 = 85 mL/min/1.73 sq.m. Ages 70+ = 75 mL/min/1.73 sq.m. Chronic Kidney Disease: Less than 60 mL/min/1.73 square meters End Stage Renal Disease: Less than 15 mL/min/1.73 square meters GFR/1.73 sq M.predicted among non-blacks MDRD (S/P/Bld) [Vol rate/Area] 81 ml/min/1.73sqm Invalid Interpretation Code AO Chemistry S Comment on above: Interpretive Data: GFR Population mean for , Non- Americans Ages 20-29 = 116 mL/min/1.73 sq.m. Ages 30-39 = 107 mL/min/1.73 sq.m. Ages 40-49 = 99 mL/min/1.73 sq.m. Ages 50-59 = 93 mL/min/1.73 sq.m. Ages 60-69 = 85 mL/min/1.73 sq.m. Ages 70+ = 75 mL/min/1.73 sq.m. Chronic Kidney Disease: Less than 60 mL/min/1.73 square meters End Stage Renal Disease: Less than 15 mL/min/1.73 square meters Globulin 3.1 G/dL Invalid Interpretation Code AO ADM SS Glucose [Mass/Vol] 189 mg/dL High 70 - 105 mg/dL AO ADM SS Glucose [Mass/Vol] 192 mg/dL Invalid Interpretation Code AO Chemistry S Comment on above: Interpretive Data: E stimated average glucose (eAG) is a calculated value from Hemoglobin A1C and is media sales representative of the average blood glucose level in the last 2-3 month period. Normal range: less than 114 mg/dL HbA1c (Bld) [Mass fraction] 8.3 % High 4.3 - 6.4 % AO ADM SS Hematocrit (Bld) [Volume fraction] 41.5 % Normal 40.0 - 52.0 % AO Workflow SS Hemoglobin (Bld) [Mass/Vol] 13.6 G/dL Normal 13.0 - 17.5 G/dL AO Workflow SS Lymphocytes (Bld) [#/Vol] 1.9 103/mcL Normal 0.9 - 4.3 10^3/mcL AO Workflow SS Lymphocytes/100 WBC (Bld) 27.0 % Normal 20.0 - 40.0 % AO Workflow SS MCH (RBC) [Entitic mass] 26.5 pg Low 27.0 - 33.0 pg AO Workflow SS MCHC 32.7 G/dL Normal 32.0 - 36.0 G/dL AO Workflow SS MCV (RBC) [Entitic vol] 80.9 fL Low 81.0 - 100.0 fL AO Workflow SS Monocytes (Bld) [#/Vol] 0.7 103/mcL Normal 0.1 - 1.4 10^3/mcL AO Workflow SS Monocytes/100 WBC (Bld) 9.7 % Normal 2.0 - 13.0 % AO Workflow SS Neutrophils (Bld) [#/Vol] 4.1 103/mcL Normal 2.3 - 8.1 10^3/mcL AO Workflow SS Neutrophils/100 WBC (Bld) 58.7 % Normal 50.0 - 75.0 % AO Workflow SS Platelet mean volume (Bld) [Entitic vol] 8.7 fL Normal 6.4 - 10.5 fL AO Workflow SS Platelets (Bld) [#/Vol] 278 103/mcL Normal 150 - 450 10^3/mcL AO Workflow SS Potassium [Moles/Vol] 4.7 mmol/L Normal 3.5 - 5.1 mmol/L AO ADM SS Prostate specific Ag [Mass/Vol] 0.33 ng/mL Normal 0.00 - 4.00 ng/mL AO ADM SS Protein [Mass/Vol] 6.9 G/dL Normal 6.4 - 8.2 G/dL AO ADM SS RBC (Bld) [#/Vol] 5.14 106/mcL Normal 4.50 - 6.0 0 10^6/mcL AO Workflow SS Sodium [Moles/Vol] 137 mmol/L Normal 136 - 145 mmol/L AO ADM SS TSH Qn 3.74 m[IU]/L Normal 0.36 - 3.74 mcIU/mL AO ADM SS Urea nitrogen [Mass/Vol] 31 mg/dL High 7 - 18 mg/dL AO ADM SS Urea nitrogen/Creatinine [Mass ratio] 32 ratio High 7 - 27 ratio AO ADM SS WBC (Bld) [#/Vol] 6.9 103/mcL Normal 4.5 - 10.8 10^3/mcL AO Workflow SS LABORATORYOrdered By: Cas Freeman on 08-07-2024 Cholesterol [Mass/Vol] 247 mg/dL High 0 - 200 mg/dL AO ADM SS Comment on above: Interpretive Data: C holesterol Reference Interval: Less than 200 Desirable 200-239 Borderline high risk 240 and above High risk Cholesterol in HDL [Mass/Vol] 81 mg/dL High 40 - 60 mg/dL AO ADM SS Cholesterol in LDL [Mass/Vol] 149 mg/dL High 0 - 130 mg/dL AO ADM SS Triglyceride [Mass/Vol] 84 mg/dL Normal 0 - 150 mg/dL AO ADM SS Comment on above: Interpretive Data: T riglyceride Reference Interval: Less than 150 Normal 150-199 Borderline high risk 200-499 High risk 500 or higher Very high risk LIPIDon 08-07-2024 Cholesterol [Mass/Vol] 247 mg/dL High 0-200 [facility] Comment on above: Result Comment: Chol esterol Reference Interval: Less than 200 Desirable 200-239 Borderline high risk 240 and above High risk Performed By: #### [id number] #### [address] [address] #### CPEP #### [address] [address] Cholesterol in HDL [Mass/Vol] 81 mg/dL High 40-60 [facility] Comment on above: Performed By: #### [id number] #### [address] [address] #### CPEP #### [address] [address] Cholesterol in LDL [Mass/Vol] 149 mg/dL High 0-130 [facility] Comment on above: Performed By: #### [id number] #### [address] [address] #### CPEP #### [address] [address] Triglyceride [Mass/Vol] 84 mg/dL Normal 0-150 [facility] Comment on above: Result Comment: Trig lyceride Reference Interval: Less than 150 Normal 150-199 Borderline high risk 200-499 High risk 500 or higher Very high risk Performed By: #### [id number] #### [address] [address] #### CPEP #### [address] [address] PSAon 08-07-2024 Prostate Specific Antigen 0.33 ng/mL Normal 0.00-4.00 [facility] Comment on above: Performed By: #### A TEJAS, ADIFF, CBC, PSA, TSHR, LIPID, GFR, CMP, A1C #### [address] [address] TSHRon 08-07-2024 TSH Qn 3.74 m[IU]/L Normal 0.36-3.74 [facility] Comment on above: Performed By: #### A TEJAS, ADIFF, CBC, PSA, TSHR, LIPID, GFR, CMP, A1C #### [facility] [address] [place], [place] [address] Final Surgical Pathology Rep dinora 09-21-2023 Final Surgical Pathology Report . Pathology Reports Accession: Collected Date/Time: Received Date/Time: Pathologist: [id number] 09/17/2023 11:27 EST 09/20/2023 13:05 EST DIEUDONNE WING MD Final Surgical Pathology Report DIAGNOSIS: A. MID TRANSVERSE COLON POLYP: - POLYPOID COLON MUCOSA WITH NO SIGNIFICANT PATHOLOGIC CHANGES B. PROXIMAL SIGMOID COLON POLYP: - HYPERPLASTIC POLYP WITH INFLAMMATION CLINICAL INFORMATION: SCREENING Procedure: COLONOSCOPY Preoperative diagnosis: SCREENING Postoperative diagnosis: SCREENING SPECIMEN: A MID TRANSVERSE COLON POLYP 3MM B 2- PROXIMAL SIGMOID COLON POLYP 5 MM GROSS DESCRIPTION: All parts labelled with patient name and [id number] A. Received in formalin labeled mid transverse colon polyp is 1 villagran tissue fragment measuring 0.5 x 0.2 cm. TS-1 B. Received in formalin labeled proximal sigmoid polyp 5 mm is 1 villagran tissue fragment measuring 0.4 cm. TS-1 April Bal, Grossing [employer] Machine Operator/ Dr. Isacc Mayfield, Pathologist Dictated by April Bal MICROSCOPIC DESCRIPTION: The microscopic examination is performed, except in the case of Gross Only. Electronically Signed by Pathology Report verified by [facility] DIEUDONNE WING Sign out Date: 09/21/2023 12:22 Performing Lab: [facility], [address] [place] [address] Pathology Dept Disclaimer If ancillary studies were utilized, the following Laboratory Developed Test (LDT) disclaimer will apply: Under CLIA requirements, [facility] is qualified to perform high complexity testing. For all ancillary stains, positive and negative controls stain appropriately. Performance characteristics of immunohistochemical and chromogenic in-situ hybridization tests have been determined by [facility]. These tests are used for clinical purposes, They should not be regarded as investigational or for research. Normal [facility] ([place]) .Auto Diffon 07-10-2023 Basophil, Absolute 0.0 10 3/mcL Normal 0.0-0.2 [facility] ([place]) Comment on above: Performed By: #### A TEJAS, VIDH, ADIFF, GFR, A1C, CMP, CBC, PSA, LIPID #### [address] [address] #### HCV1 #### [address] [address] Basophils/100 WBC (Bld) 0.6 % Normal 0.0-2.5 [facility] ([place]) Comment on above: Performed By: #### A TEJAS, VIDH, ADIFF, GFR, A1C, CMP, CBC, PSA, LIPID #### [address] [address] #### HCV1 #### [address] [address] Eosinophil, Absolute 0.2 10 3/mcL Normal 0.0-0.4 [facility] ([place]) Comment on above: Performed By: #### A TEJAS, VIDH, ADIFF, GFR, A1C, CMP, CBC, PSA, LIPID #### [address] [address] #### HCV1 #### [address] [address] Eosinophils/100 WBC (Bld) 3.6 % Normal 0.0-7.0 [facility] ([place]) Comment on above: Performed By: #### A TEJAS, VIDH, ADIFF, GFR, A1C, CMP, CBC, PSA, LIPID #### [address] [address] #### HCV1 #### [address] [address] Lymphocyte, Absolute 1.8 10 3/mcL Normal 0.8-3.9 [facility] ([place]) Comment on above: Performed By: #### A TEJAS, VIDH, ADIFF, GFR, A1C, CMP, CBC, PSA, LIPID #### [address] [address] #### HCV1 #### [address] [address] Lymphocytes/100 WBC (Bld) 27.7 % Normal 10.0-50.0 [facility] ([place]) Comment on above: Performed By: #### A TEJAS, VIDH, ADIFF, GFR, A1C, CMP, CBC, PSA, LIPID #### [address] [address] #### HCV1 #### [address] [address] Monocyte, Absolute 0.7 10 3/mcL Normal 0.2-1.0 [facility] ([place]) Comment on above: Performed By: #### A TEJAS, VIDH, ADIFF, GFR, A1C, CMP, CBC, PSA, LIPID #### [address] [address] #### HCV1 #### [address] [address] Monocytes/100 WBC (Bld) 9.8 % Normal 1.7-13.0 [facility] ([place]) Comment on above: Performed By: #### A TEJAS, VIDH, ADIFF, GFR, A1C, CMP, CBC, PSA, LIPID #### [address] [address] #### HCV1 #### [address] [address] Neutrophils/100 WBC (Bld) 58.3 % Normal 37.0-80.0 [facility] ([place]) Comment on above: Performed By: #### A TEJAS, VIDH, ADIFF, GFR, A1C, CMP, CBC, PSA, LIPID #### [address] [address] #### HCV1 #### [address] [address] .GFRon 07-10-2023 GFR 81 ml/min/1.73sqm Normal [facility] ([place]) Comment on above: Result Comment: GFR Population mean for , Non- Americans Ages 20-29 = 116 mL/min/1.73 sq.m. Ages 30-39 = 107 mL/min/1.73 sq.m. Ages 40-49 = 99 mL/min/1.73 sq.m. Ages 50-59 = 93 mL/min/1.73 sq.m. Ages 60-69 = 85 mL/min/1.73 sq.m. Ages 70+ = 75 mL/min/1.73 sq.m. Chronic Kidney Disease: Less than 60 mL/min/1.73 square meters End Stage Renal Disease: Less than 15 mL/min/1.73 square meters Performed By: #### A TEJAS, VIDH, ADIFF, GFR, A1C, CMP, CBC, PSA, LIPID #### [address] [address] #### HCV1 #### [address] [address] GFR Non- 67 ml/min/1.73sqm Normal [facility] ([place]) Comment on above: Result Comment: GFR Population mean for , Non- Americans Ages 20-29 = 116 mL/min/1.73 sq.m. Ages 30-39 = 107 mL/min/1.73 sq.m. Ages 40-49 = 99 mL/min/1.73 sq.m. Ages 50-59 = 93 mL/min/1.73 sq.m. Ages 60-69 = 85 mL/min/1.73 sq.m. Ages 70+ = 75 mL/min/1.73 sq.m. Chronic Kidney Disease: Less than 60 mL/min/1.73 square meters End Stage Renal Disease: Less than 15 mL/min/1.73 square meters Performed By: #### A TEJAS, VIDH, ADIFF, GFR, A1C, CMP, CBC, PSA, LIPID #### [address] [address] #### HCV1 #### [address] [address] .NEUABSon 07-10-2023 Neutrophil, Absolute 3.9 10 3/mcL Normal 2.9-6.2 [facility] ([place]) Comment on above: Performed By: #### A TEJAS, VIDH, ADIFF, GFR, A1C, CMP, CBC, PSA, LIPID #### [address] [address] #### HCV1 #### [address] [address] A1Con 07-10-2023 HbA1c (Bld) [Mass fraction] 7.4 % High 4.3-6.4 [facility] ([place]) Comment on above: Performed By: #### A TEJAS, VIDH, ADIFF, GFR, A1C, CMP, CBC, PSA, LIPID #### [address] [address] #### HCV1 #### [address] [address] CBCon 07-10-2023 Erythrocyte distribution width (RBC) [Ratio] 15.3 % High 11.5-14.5 [facility] ([place]) Comment on above: Performed By: #### A TEJAS, VIDH, ADIFF, GFR, A1C, CMP, CBC, PSA, LIPID #### [address] [address] #### HCV1 #### [address] [address] Hematocrit (Bld) [Volume fraction] 41.9 % Low 42.0-52.0 [facility] ([place]) Comment on above: Performed By: #### A TEJAS, VIDH, ADIFF, GFR, A1C, CMP, CBC, PSA, LIPID #### [address] [address] #### HCV1 #### [address] [address] Hgb 13.7 G/dL Low 14.0-18.0 [facility] ([place]) Comment on above: Performed By: #### A TEJAS, VIDH, ADIFF, GFR, A1C, CMP, CBC, PSA, LIPID #### [place] [address] #### HCV1 #### [address] [address] MCH (RBC) [Entitic mass] 26.1 pg Low 27.0-31.2 [facility] ([place]) Comment on above: Performed By: #### A TEJAS, VIDH, ADIFF, GFR, A1C, CMP, CBC, PSA, LIPID #### [address] [address] #### HCV1 #### [place] [address] MCHC 32.6 G/dL Normal 31.8-35.4 [facility] ([place]) Comment on above: Performed By: #### A TEJAS, VIDH, ADIFF, GFR, A1C, CMP, CBC, PSA, LIPID #### [place] [address] #### HCV1 #### [place] [address] MCV (RBC) [Entitic vol] 80.2 fL Normal 80.0-94.0 [facility] ([place]) Comment on above: Performed By: #### A TEJAS, VIDH, ADIFF, GFR, A1C, CMP, CBC, PSA, LIPID #### [place] [address] #### HCV1 #### [place] [address] Platelet 272 10 3/mcL Normal 130-400 [facility] ([place]) Comment on above: Performed By: #### A TEJAS, VIDH, ADIFF, GFR, A1C, CMP, CBC, PSA, LIPID #### [place] [address] #### HCV1 #### [place] [address] Platelet mean volume (Bld) [Entitic vol] 8.4 fL Normal 7.4-10.4 [facility] ([place]) Comment on above: Performed By: #### A TEJAS, VIDH, ADIFF, GFR, A1C, CMP, CBC, PSA, LIPID #### [place] [address] #### HCV1 #### [address] [address] RBC 5.23 10 6/mcL Normal 4.04-6.13 [facility] ([place]) Comment on above: Performed By: #### A TEJAS, VIDH, ADIFF, GFR, A1C, CMP, CBC, PSA, LIPID #### [address] [address] #### HCV1 #### [place] [address] WBC 6.7 10 3/mcL Normal 4.6-10.8 [facility] ([place]) Comment on above: Performed By: #### A TEJAS, VIDH, ADIFF, GFR, A1C, CMP, CBC, PSA, LIPID #### [address] [address] #### HCV1 #### [place] [address] CMPon 07-10-2023 Albumin Level 4.1 G/dL Normal 3.5-5.0 [facility] ([place]) Comment on above: Performed By: #### A TEJAS, VIDH, ADIFF, GFR, A1C, CMP, CBC, PSA, LIPID #### [place] [address] #### HCV1 #### [place] [address] Albumin/Globulin [Mass ratio] 1.2 {ratio} Normal 1.1-2.5 [facility] ([place]) Comment on above: Performed By: #### A TEJAS, VIDH, ADIFF, GFR, A1C, CMP, CBC, PSA, LIPID #### [place] [address] #### HCV1 #### [place] [address] ALP [Catalytic activity/Vol] 43 U/L Normal 40-135 [facility] ([place]) Comment on above: Performed By: #### A TEJAS, VIDH, ADIFF, GFR, A1C, CMP, CBC, PSA, LIPID #### [address] [address] #### HCV1 #### [address] [address] ALT [Catalytic activity/Vol] 18 U/L Normal 16-63 [facility] ([place]) Comment on above: Performed By: #### A TEJAS, VIDH, ADIFF, GFR, A1C, CMP, CBC, PSA, LIPID #### [place] [address] #### HCV1 #### [address] [address] AST [Catalytic activity/Vol] 16 U/L Normal 10-40 [facility] ([place]) Comment on above: Performed By: #### A TEJAS, VIDH, ADIFF, GFR, A1C, CMP, CBC, PSA, LIPID #### [place] [address] #### HCV1 #### [place] [address] Bili Total 0.4 mg/dL Normal 0.2-1.0 [facility] ([place]) Comment on above: Result Comment: Use of this assay is not recommended for patients undergoing treatment with eltrombopag due to the potential for falsely elevated results. Performed By: #### A TEJAS, VIDH, ADIFF, GFR, A1C, CMP, CBC, PSA, LIPID #### [place] [address] #### HCV1 #### [place] [address] BUN/Creatinine Ratio 30 ratio High 7-27 [facility] ([place]) Comment on above: Performed By: #### A TEJAS, VIDH, ADIFF, GFR, A1C, CMP, CBC, PSA, LIPID #### [place] [address] #### HCV1 #### [place] [id number] Calcium [Mass/Vol] 8.9 mg/dL Normal 8.4-10.2 [facility] ([place]) Comment on above: Performed By: #### A TEJAS, VIDH, ADIFF, GFR, A1C, CMP, CBC, PSA, LIPID #### [address] [address] #### HCV1 #### [address] [address] Chloride [Moles/Vol] 101 mmol/L Normal 98-107 [facility] ([place]) Comment on above: Performed By: #### A TEJAS, VIDH, ADIFF, GFR, A1C, CMP, CBC, PSA, LIPID #### [address] [address] #### HCV1 #### [address] [address] CO2 [Moles/Vol] 24 mmol/L Normal 22-29 [facility] ([place]) Comment on above: Performed By: #### A TEJAS, VIDH, ADIFF, GFR, A1C, CMP, CBC, PSA, LIPID #### [place] [address] #### HCV1 #### [address] [address] Creatinine [Mass/Vol] 1.13 mg/dL Normal 0.70-1.30 [facility] ([place]) Comment on above: Performed By: #### A TEJAS, VIDH, ADIFF, GFR, A1C, CMP, CBC, PSA, LIPID #### [place] [address] #### HCV1 #### [address] [address] Electrolyte Balance 12.0 mEq/L Normal 4.0-15.0 [facility] ([place]) Comment on above: Performed By: #### A TEJAS, VIDH, ADIFF, GFR, A1C, CMP, CBC, PSA, LIPID #### [address] [address] #### HCV1 #### [place] [address] Globulin 3.5 G/dL Normal [facility] ([place]) Comment on above: Performed By: #### A TEJAS, VIDH, ADIFF, GFR, A1C, CMP, CBC, PSA, LIPID #### [address] [address] #### HCV1 #### [address] [address] Glucose [Mass/Vol] 130 mg/dL High 70-105 [facility] ([place]) Comment on above: Performed By: #### A TEJAS, VIDH, ADIFF, GFR, A1C, CMP, CBC, PSA, LIPID #### [address] [address] #### HCV1 #### [address] [address] Potassium [Moles/Vol] 5.4 mmol/L High 3.5-5.1 [facility] ([place]) Comment on above: Performed By: #### A TEJAS, VIDH, ADIFF, GFR, A1C, CMP, CBC, PSA, LIPID #### [address] [address] #### HCV1 #### [address] [address] Sodium [Moles/Vol] 137 mmol/L Normal 136-145 [facility] ([place]) Comment on above: Performed By: #### A TEJAS, VIDH, ADIFF, GFR, A1C, CMP, CBC, PSA, LIPID #### [address] [address] #### HCV1 #### [address] [address] Total Protein 7.6 G/dL Normal 6.4-8.2 [facility] ([place]) Comment on above: Performed By: #### A TEJAS, VIDH, ADIFF, GFR, A1C, CMP, CBC, PSA, LIPID #### [address] [address] #### HCV1 #### [address] [address] Urea nitrogen [Mass/Vol] 34 mg/dL High 7-18 [facility] ([place]) Comment on above: Performed By: #### A TEJAS, VIDH, ADIFF, GFR, A1C, CMP, CBC, PSA, LIPID #### [address] [address] #### HCV1 #### [address] [address] HCVon 07-10-2023 Hep C Ab Non-Reactive Normal Non-Reactive [facility] ([place]) Comment on above: Performed By: #### A TEJAS, VIDH, ADIFF, GFR, A1C, CMP, CBC, PSA, LIPID #### [place] [address] #### HCV1 #### [place] [address] Hep C Ab Int Normal [facility] ([place]) Comment on above: Result Comment: Nonr eactive: Samples with a value < 0.80 are considered nonreactive (negative) for antibodies to HCV. A negative test result does not exclude the possibility of exposure to or infection with HCV. HCV antibodies may be undetectable in some stages of the infection and in some clinical conditions. See Interp Performed By: #### A TEJAS, VIDH, ADIFF, GFR, A1C, CMP, CBC, PSA, LIPID #### [address] [address] #### HCV1 #### [address] [address] LIPIDon 07-10-2023 Cholesterol [Mass/Vol] 252 mg/dL High 0-200 [facility] ([place]) Comment on above: Result Comment: Chol esterol Reference Interval: Less than 200 Desirable 200-239 Borderline high risk 240 and above High risk Performed By: #### A TEJAS, VIDH, ADIFF, GFR, A1C, CMP, CBC, PSA, LIPID #### [address] [address] #### HCV1 #### [address] [address] Cholesterol in HDL [Mass/Vol] 87 mg/dL High 40-60 [facility] ([place]) Comment on above: Performed By: #### A TEJAS, VIDH, ADIFF, GFR, A1C, CMP, CBC, PSA, LIPID #### [address] [address] #### HCV1 #### [address] [address] Cholesterol in LDL [Mass/Vol] 154 mg/dL High 0-130 [facility] ([place]) Comment on above: Performed By: #### A TEJAS, VIDH, ADIFF, GFR, A1C, CMP, CBC, PSA, LIPID #### [address] [address] #### HCV1 #### [address] [address] Triglyceride [Mass/Vol] 57 mg/dL Normal 0-150 [facility] ([place]) Comment on above: Result Comment: Trig lyceride Reference Interval: Less than 150 Normal 150-199 Borderline high risk 200-499 High risk 500 or higher Very high risk Performed By: #### A TEJAS, VIDH, ADIFF, GFR, A1C, CMP, CBC, PSA, LIPID #### [address] [address] #### HCV1 #### [address] [address] MALBRon 07-10-2023 U Creatinine 95.8 mg/dL Normal 39.0-259.0 [facility] ([place]) Comment on above: Performed By: #### A TEJAS, VIDH, ADIFF, GFR, A1C, CMP, CBC, PSA, LIPID #### [address] [address] #### HCV1 #### [address] [address] U Microalb 8411 mcg/dL Normal [facility] ([place]) Comment on above: Performed By: #### A TEJAS, VIDH, ADIFF, GFR, A1C, CMP, CBC, PSA, LIPID #### [address] [address] #### HCV1 #### [address] [address] U Ratio Alb/Cre 88 mcg/mg High 0-30 [facility] ([place]) Comment on above: Performed By: #### A TEJAS, VIDH, ADIFF, GFR, A1C, CMP, CBC, PSA, LIPID #### [address] [address] #### HCV1 #### [place] [address] PSAon 07-10-2023 Prostate Specific Antigen 0.35 ng/mL Normal 0.00-4.00 [facility] ([place]) Comment on above: Performed By: #### A TEJAS, VIDH, ADIFF, GFR, A1C, CMP, CBC, PSA, LIPID #### [address] [address] #### HCV1 #### [place] [address] VIDHon 07-10-2023 Vit. D 25-Hydroxy 49.8 ng/mL Normal [facility] ([place]) Comment on above: Result Comment: Inte rpretive Values Based on Total 25(OH) Vitamin D: Deficient <20 ng/mL Insufficient 20 - <30 ng/mL Sufficient 30-100 ng/mL Performed By: #### A TEJAS, VIDH, ADIFF, GFR, A1C, CMP, CBC, PSA, LIPID #### [address] [address] #### HCV1 #### [address] [address] No Panel Informationon 06-11 Culture Wound Aerobe No growth at 48 hours. [facility] GS No organisms seen. [facility] LABORATORYOrdered By: Cristine Jensen on 03-09-2022 Albumin BCP dye [Mass/Vol] 4.2 G/dL Invalid Interpretation Code 3.5 - 5.0 G/dL AO ADM SS Albumin/Globulin [Mass ratio] 1.3 {ratio} Invalid Interpretation Code 1.1 - 2.5 ratio AO ADM SS ALP [Catalytic activity/Vol] 48 U/L Invalid Interpretation Code 40 - 135 U/L AO ADM SS ALT With P-5'-P [Catalytic activity/Vol] 22 U/L Invalid Interpretation Code 16 - 63 U/L AO ADM SS AST With P-5'-P [Catalytic activity/Vol] 21 U/L Invalid Interpretation Code 10 - 40 U/L AO ADM SS Bilirubin [Mass/Vol] 0.4 mg/dL Invalid Interpretation Code 0.2 - 1.0 mg/dL AO ADM SS Calcium [Mass/Vol] 9.8 mg/dL Invalid Interpretation Code 8.4 - 10.2 mg/dL AO ADM SS Chloride [Moles/Vol] 104 mmol/L Invalid Interpretation Code 98 - 107 mmol/L AO ADM SS Cholesterol [Mass/Vol] 214 mg/dL Invalid Interpretation Code 0 - 200 mg/dL AO ADM SS Cholesterol in HDL [Mass/Vol] 82 mg/dL Invalid Interpretation Code 40 - 60 mg/dL AO ADM SS Cholesterol in LDL [Mass/Vol] 122 mg/dL Invalid Interpretation Code 0 - 130 mg/dL AO ADM SS CO2 [Moles/Vol] 26 mmol/L Invalid Interpretation Code 22 - 29 mmol/L AO ADM SS Creatinine [Mass/Vol] 0.89 mg/dL Invalid Interpretation Code 0.70 - 1.30 mg/dL AO ADM SS Electrolyte Balance 12.0 mEq/L Invalid Interpretation Code 4.0 - 15.0 mEq/L AO ADM SS Globulin 3.2 G/dL Invalid Interpretation Code AO ADM SS Glucose [Mass/Vol] 107 mg/dL Invalid Interpretation Code 70 - 105 mg/dL AO ADM SS Potassium [Moles/Vol] 4.1 mmol/L Invalid Interpretation Code 3.5 - 5.1 mmol/L AO ADM SS Protein [Mass/Vol] 7.4 G/dL Invalid Interpretation Code 6.4 - 8.2 G/dL AO ADM SS Sodium [Moles/Vol] 142 mmol/L Invalid Interpretation Code 136 - 145 mmol/L AO ADM SS Triglyceride [Mass/Vol] 49 mg/dL Invalid Interpretation Code 0 - 150 mg/dL AO ADM SS TSH Qn 3.57 m[IU]/L Invalid Interpretation Code 0.36 - 3.74 mcIU/mL AO ADM SS Urea nitrogen [Mass/Vol] 25 mg/dL Invalid Interpretation Code 7 - 18 mg/dL AO ADM SS Urea nitrogen/Creatinine [Mass ratio] 28 ratio Invalid Interpretation Code 7 - 27 ratio AO ADM SS LABORATORYOrdered By: Cas Freeman on 03-09-2022 Basophil, Absolute 0.0 103/mcL Invalid Interpretation Code 0.0 - 0.2 10^3/mcL AO Workflow SS Basophils/100 WBC (Bld) 0.8 % Invalid Interpretation Code 0.0 - 2.5 % AO Workflow SS Eosinophil, Absolute 0.1 103/mcL Invalid Interpretation Code 0.0 - 0.4 10^3/mcL AO Workflow SS Eosinophils/100 WBC (Bld) 2.6 % Invalid Interpretation Code 0.0 - 7.0 % AO Workflow SS Erythrocyte distribution width (RBC) [Ratio] 14.5 % Invalid Interpretation Code 11.5 - 14.5 % AO Workflow SS Hematocrit (Bld) [Volume fraction] 41.1 % Invalid Interpretation Code 42.0 - 52.0 % AO Workflow SS Hgb 13.5 G/dL Invalid Interpretation Code 14.0 - 18.0 G/dL AO Workflow SS Lymphocyte, Absolute 1.8 103/mcL Invalid Interpretation Code 0.8 - 3.9 10^3/mcL AO Workflow SS Lymphocytes/100 WBC (Bld) 34.1 % Invalid Interpretation Code 10.0 - 50.0 % AO Workflow SS MCH (RBC) [Entitic mass] 26.1 pg Invalid Interpretation Code 27.0 - 31.2 pg AO Workflow SS MCHC 32.9 G/dL Invalid Interpretation Code 31.8 - 35.4 G/dL AO Workflow SS MCV (RBC) [Entitic vol] 79.2 fL Invalid Interpretation Code 80.0 - 94.0 fL AO Workflow SS Monocyte, Absolute 0.8 103/mcL Invalid Interpretation Code 0.2 - 1.0 10^3/mcL AO Workflow SS Monocytes/100 WBC (Bld) 15.2 % Invalid Interpretation Code 1.7 - 13.0 % AO Workflow SS Neutrophil, Absolute 2.5 103/mcL Invalid Interpretation Code 2.9 - 6.2 10^3/mcL AO Workflow SS Neutrophils/100 WBC (Bld) 47.3 % Invalid Interpretation Code 37.0 - 80.0 % AO Workflow SS Platelet 236 103/mcL Invalid Interpretation Code 130 - 400 10^3/mcL AO Workflow SS Platelet mean volume (Bld) [Entitic vol] 8.0 fL Invalid Interpretation Code 7.4 - 10.4 fL AO Workflow SS RBC 5.19 106/mcL Invalid Interpretation Code 4.04 - 6.13 10^6/mcL AO Workflow SS WBC 5.3 103/mcL Invalid Interpretation Code 4.6 - 10.8 10^3/mcL AO Workflow SS LABORATORYOrdered By: SYSTEM SYSTEM on 03-09-2022 GFR 108 ml/min/1.73sqm Invalid Interpretation Code AO Chemistry S GFR Non- 89 ml/min/1.73sqm Invalid Interpretation Code AO Chemistry S Monocyte distribution width Auto (Bld) [Entitic vol] Not Performed 1 *NA* (03/09/22 12:19 PM) Invalid Interpretation Code 0.00 - 20.00 AO Hematology S Comment on above: Result Comment: MDW testing performed only on adult ER patients between the ages of 18-89 years. Vital Signs Date Time Vital Sign Value Performing Clinician Josh gan 03-09-2025 10:41-0400 Body weight 87.4 kg [employer] DO [facility] 01-23-2025 09:47-0400 Body weight 87 kg [employer] DO [facility] 01-23-2025 08:07-0400 Body height 178 cm [employer] DO [facility] 01-23-2025 08:07-0400 Body weight 27.4 kg/m2 [employer] DO [facility] 01-23-2025 08:07-0400 Body weight 86.8 kg [employer] DO [facility] 12-11-2024 15:38-0400 Body weight 87.2 kg [employer] DO [facility] 12-11-2024 15:38-0400 Diastolic Blood Pressure Non-Invasive 87 mm[Hg] [employer] DO [facility] 12-11-2024 15:38-0400 Systolic Blood Pressure Non-Invasive 162 mm[Hg] [employer] DO [facility] 09-17-2023 11:43-0500 Diastolic Blood Pressure Non-Invasive 71 mm[Hg] DR BJ KRAMER MD [facility] 09-17-2023 11:43-0500 Heart rate 80 /min DR BJ KRAMER MD [facility] 09-17-2023 11:43-0500 Respiratory rate 16 /min DR BJ KRAMER MD [facility] 09-17-2023 11:43-0500 Systolic Blood Pressure Non-Invasive 100 mm[Hg] DR BJ KRAMER MD [facility] 09-17-2023 11:38-0500 Diastolic Blood Pressure Non-Invasive 74 mm[Hg] DR BJ KRAMER MD [facility] 09-17-2023 11:38-0500 Heart rate 83 /min DR BJ KRAMER MD [facility] 09-17-2023 11:38-0500 Respiratory rate 14 /min DR BJ KRAMER MD [facility] 09-17-2023 11:38-0500 Systolic Blood Pressure Non-Invasive 105 mm[Hg] DR BJ KRAMER MD [facility] 09-17-2023 11:33-0500 Diastolic Blood Pressure Non-Invasive 64 mm[Hg] DR BJ KRAMER MD [facility] 09-17-2023 11:33-0500 Heart rate 82 /min DR BJ KRAMER MD [facility] 09-17-2023 11:33-0500 Respiratory rate 14 /min DR BJ KRAMER MD [facility] 09-17-2023 11:33-0500 Systolic Blood Pressure Non-Invasive 100 mm[Hg] DR BJ KRAMER MD [facility] 09-17-2023 11:25-0500 Respiratory Rate - Anes 13 br/min DR BJ KRAMER MD [facility] 09-17-2023 11:20-0500 Respiratory Rate - Anes 12 br/min DR BJ KRAMER MD [facility] 09-17-2023 11:15-0500 Respiratory Rate - Anes 14 br/min DR BJ KRAMER MD [facility] 09-17-2023 10:19-0500 Blood Pressure Cuff Size DR BJ KRAMER MD [facility] 09-17-2023 10:19-[address] BJ KRAMER MD [facility] 09-17-2023 10:19-[address] BJ KRAMER MD [facility] 09-17-2023 10:19-0500 Body height [address] BJ KRAMER MD [facility] 09-17-2023 10:19-0500 Body temperature 97.52 [degF] DR BJ KRAMER MD [facility] 09-17-2023 10:19-0500 Body weight 81.[address] BJ KRAMER MD [facility] 09-17-2023 10:190500 Body weight 25.25 kg/m2 DR BJ KRAMER MD [facility] 09-17-2023 10:190500 Heart rate 91 /min DR BJ KRAMER MD [facility] Encounters Encounter Date Encounter Type Care Provider Facility Start: 06-27-2025 End: 06-27-2025 ambulatory [facility] Facility:[facility] Start: 04-24-2025 End: 04-28-2025 ambulatory WOLF DREW DO [facility] Start: 04-24-2025 End: 04-28-2025 Encounter for general adult medical examination without abnormal findings WOLF DREW DO Facility:[facility] Start: 04-24-2025 End: 04-28-2025 Outreach Lab WOLF DREW DO [facility] Start: 03-09-2025 End: 07-27-2025 ambulatory WOLF DREW DO [facility] Start: 03-09-2025 End: 07-27-2025 OTHER THERAPY WOLF DREW DO [facility] Start: 02-27-2025 End: 02-27-2025 ambulatory WOLF DREW DO [facility] Start: 02-27-2025 End: 02-27-2025 Patient encounter procedure WOLF DREW DO [facility] Start: 01-23-2025 ambulatory WOLF DREW DO Faci lity:[facility] Start: 01-23-2025 End: 01-23-2025 ambulatory WOLF DREW DO [facility] Start: 01-23-2025 End: 01-23-2025 Patient encounter procedure WOLF DREW DO [facility] Start: 01-13-2025 End: 01-13-2025 ambulatory WOLF E DREW DO [facility] Start: 12-20-2024 End: 12-20-[address] Sami Gustafson DPM Work Phone: [facility] Work Phone: Start: 12-20-2024 End: 12-20-[address] Ragini Escamilla DPM -Laboratory, Specimen Work Phone: Start: 12-20-2024 End: 12-20-2024 ambulatory Ragini Escamilla Facility:[facility] Start: 12-09-2024 End: 12-09-2024 ambulatory WOLF DREW DO [facility] Start: 12-05-2024 End: 12-09-2024 ambulatory WOLF E DREW DO [facility] Start: 12-05-2024 End: 12-05-2024 ambulatory WOLF E DREW DO [facility] Start: 12-05-2024 End: 12-05-2024 Patient encounter procedure WOLF E DREW DO [facility] Start: 08-07-2024 End: 08-07-2024 ambulatory WOLF E DREW DO [facility] Start: 08-07-2024 End: 08-07-2024 Patient encounter procedure WOLF E DREW DO [facility] Start: 09-17-2023 End: 09-17-2023 ambulatory WOLF E DREW DO Facility:[facility] Start: 09-17-2023 End: 09-17-[address] BJ KRAMER MD [facility] Start: 07-10-2023 End: 07-11-2023 ambulatory [employer]HE[employer] W[employer]ER Facility:[facility] Start: 06-11-2022 End: 06-15-2022 Outreach Lab DAMIAN [employer]WHEAT W[employer]ER [facility] Start: 06-03-2022 End: 06-03-2022 Patient encounter procedure DAMIAN [employer]WHEAT W[employer]ER [facility] Start: 03-09-2022 End: 03-09-2022 Patient encounter procedure BJ RUIZ MD [facility] Procedures Date Procedure Procedure Detail Performing Clinician Start: 12-20-2024 Gram stain microscopy Brooklyn Gustafson DPM Work Phone: Start: 12-20-2024 Microbial culture, routine Dr. Sami Gustafson DPM Work Phone: Immunizations Immunization Date Immunization Notes Care Provider [facility] 12-24-[address] BJ KRAMER MD [facility] 10-09-[address] BJ KRAMER MD [facility] 07-20-2021 SARS-CoV-2 mRNA (tozinameran) vaccine BJ RUIZ MD [facility] 06-29-2021 SARS-CoV-2 mRNA (tozinameran) vaccine BJ RUIZ MD [facility] Payers Date Payer Category Payer Private Health Insurance [id number] 2024 Self-pay 2024 Unknown [id number] 2023 Unknown [id number] 1965 Unknown [id number] 2.16.8 [id number] 1967 Unknown [id number] 2.16.8 [id number]. 1967 Unknown [id number] 2.16. [id number] 1967 Unknown [id number] 2.16. [id number]. 1967 Unknown [id number] 2.16.8 [id number] 1967 Unknown [id number] 2.16.8 [id number]. 1967 Unknown [id number] 2.16.8 [id number] 1967 Unknown [id number] 2.16.8 [id number]. 1967 Unknown [id number] 2.16.8 [id number] 1967 Unknown [id number] 2.16.8 [id number] 1967 Unknown [id number] 2.16.8 [id number] 1967 Unknown [id number] 2.16.8 [id number] Unknown [id number] 2.16.8 [id number] Unknown [id number] 2.16.8 [id number] Social History Date Type Detail Facility Start: 04-14-2019 Tobacco smoking status Never s moked tobacco (finding) [facility] Comment on above: no tobacco smoke exp osure Sex Assigned At [facility] Start: 02-17-2018 End: 12-27-2024 Sex Male (finding) [facility] Work Phone: Start: 1965 Sex Assigned At Male [facility] Medical Equipment Procedure Code Equipment Code Equipment Origin al Text Equipment Identifier Dates See Instructions , test BGT 1x/d, dispense #50, 11 refills; dx E11.9, # 50 EA, 11 Refill(s), [id number] Start: 10-28-2019 See Instructions , test BGT 1x/d, dispense #50, 11 refills; dx E11.9, # 50 EA, 11 Refill(s), [id number], 177.8, cm, 03/25/21 7:47:00 EDT, Height, 83, kg, 03/25/21 7:47:00 EDT, Dosing Weight Start: 07-30-2021 See Instructions , test BGT 1x/d, dispense #50, 11 refills; dx E11.9, # 50 EA, 11 Refill(s), [id number] Start: 10-28-2019 See Instructions , test BGT 1x/d, dispense #50, 11 refills; dx E11.9, # 50 EA, 11 Refill(s), [id number], 177.8, cm, 03/25/21 7:47:00 EDT, Height, 83, kg, 03/25/21 7:47:00 EDT, Dosing Weight Start: 07-30-2021 See Instructions , test BGT 1x/d, dispense #50, 11 refills; dx E11.9, # 50 EA, 11 Refill(s), [id number] Start: 10-28-2019 See Instructions , test BGT 1x/d, dispense #50, 11 refills; dx E11.9, # 50 EA, 11 Refill(s), [id number], 177.8, cm, 03/25/21 7:47:00 EDT, Height, 83, kg, 03/25/21 7:47:00 EDT, Dosing Weight Start: 07-30-2021 See Instructions , test BGT 1x/d, dispense #50, 11 refills; dx E11.9, # 50 EA, 11 Refill(s), [id number], 180, cm, 09/17/23 10:19:00 EST, Height, 84.3, kg, 04/17/24 13:55:00 EDT, Dosing Weight Start: 04-17-2024 See Instructions , test BGT 1x/d, dispense #50, 11 refills; dx E11.9, # 50 EA, 11 Refill(s), [id number], 180, cm, 09/17/23 10:19:00 EST, Height, 84.3, kg, 04/17/24 13:55:00 EDT, Dosing Weight Start: 04-17-2024 See Instructions , test BGT 1x/d, dispense #50, 11 refills; dx E11.9, # 50 EA, 11 Refill(s), [id number] Start: 10-28-2019 See Instructions , test BGT 1x/d, dispense #50, 11 refills; dx E11.9, # 50 EA, 11 Refill(s), [id number], 177.8, cm, 03/25/21 7:47:00 EDT, Height, 83, kg, 03/25/21 7:47:00 EDT, Dosing Weight Start: 07-30-2021 See Instructions , test BGT 1x/d, dispense #50, 11 refills; dx E11.9, # 50 EA, 11 Refill(s), [id number], 180, cm, 09/17/23 10:19:00 EST, Height, 84.3, kg, 04/17/24 13:55:00 EDT, Dosing Weight Start: 04-17-2024 See Instructions , test BGT 1x/d, dispense #50, 11 refills; dx E11.9, # 50 EA, 11 Refill(s), [id number], 180, cm, 09/17/23 10:19:00 EST, Height, 84.3, kg, 04/17/24 13:55:00 EDT, Dosing Weight Start: 04-17-2024 See Instructions , test BGT 1x/d, dispense #50, 11 refills; dx E11.9, # 50 EA, 11 Refill(s), [id number], 180, cm, 09/17/23 10:19:00 EST, Height, 84.3, kg, 04/17/24 13:55:00 EDT, Dosing Weight Start: 04-17-2024 See Instructions , test BGT 1x/d, dispense #50, 11 refills; dx E11.9, # 50 EA, 11 Refill(s), [id number], 180, cm, 09/17/23 10:19:00 EST, Height, 84.3, kg, 04/17/24 13:55:00 EDT, Dosing Weight Start: 04-17-2024 See Instructions , test BGT 1x/d, dispense #50, 11 refills; dx E11.9, # 50 EA, 11 Refill(s), [facility]: [id number], 180, cm, 09/17/23 10:19:00 EST, Height, 84.3, kg, 04/17/24 13:55:00 EDT, Dosing Weight Start: 04-17-2024 See Instructions , test BGT 1x/d, dispense #50, 11 refills; dx E11.9, # 50 EA, 11 Refill(s), [facility]: [id number], 180, cm, 09/17/23 10:19:00 EST, Height, 84.3, kg, 04/17/24 13:55:00 EDT, Dosing Weight Start: 04-17-2024 See Instructions , test BGT 1x/d, dispense #50, 11 refills; dx E11.9, # 50 EA, 11 Refill(s), [id number], 180, cm, 09/17/23 10:19:00 EST, Height, 84.3, kg, 04/17/24 13:55:00 EDT, Dosing Weight Start: 04-17-2024 See Instructions , test BGT 1x/d, dispense #50, 11 refills; dx E11.9, # 50 EA, 11 Refill(s), [facility]acy: [id number], 180, cm, 09/17/23 10:19:00 EST, Height, 84.3, kg, 04/17/24 13:55:00 EDT, Dosing Weight Start: 04-17-2024 See Instructions , test BGT 1x/d, dispense #50, 11 refills; dx E11.9, # 50 EA, 11 Refill(s), [id number], 180, cm, 09/17/23 10:19:00 EST, Height, 84.3, kg, 04/17/24 13:55:00 EDT, Dosing Weight Start: 04-17-2024 See Instructions , test BGT 1x/d, dispense #50, 11 refills; dx E11.9, # 50 EA, 11 Refill(s), [facility]: [id number], 180, cm, 09/17/23 10:19:00 EST, Height, 84.3, kg, 04/17/24 13:55:00 EDT, Dosing Weight Start: 04-17-2024 Functional Status Date Assessment Result Facility 09-17-2023 Functional Status Awake [facility] 09-17-2023 Functional Status Maintained [facility] Clinical Notes 09-17-2023 to 03-09-2025 Laboratory Note Date & Type Note Facility 03-09-2025 Note Vitals: -Weight: 192.2 lbs History & Physical: Long returns to the [facility] for follow up on diabetes management and an A1c check. Last A1c was elevated at 9.4%. He is currently managed on metformin 1000mg BID and Jardiance 25mg daily. He has been using a glucometer to check his sugar readings. If A1c remains uncontrolled today will need to discuss placing a Chiquis sample sensor on to be reviewed. Past Medical History: Problems Active Hyperkalemia Grade A3 albuminuria, severe > 1000 Pure hypercholesterolemia Essential hypertension Type 2 diabetes mellitus with hyperlipidemia Cerumen impaction Screening for prostate cancer Screening for colon cancer Current Medications: DME: See Instructions, Use as directed Brand type per insurance or patient preference; dx E11.9 DME: See Instructions, test BGT 1x/d, dispense #50, 11 refills; dx E11.9 DME: See Instructions, test BGT 1x/d, dispense #50, 11 refills; dx E11.9 DME: See Instructions, Place once sensor to the back of the upper arm every 14 days. Use reader or phone ethan for daily blood sugar checks. 1 month supply empagliflozin: 25 mg = 1 tab(s), Oral, qAM irbesartan: 150 mg = 1 tab(s), Oral, qDay isopropyl alcohol topical: See Instructions, test BGT 1x/d, dispense #50, 11 refills; dx E11.9 metFORMIN: 1,000 mg = 2 tab(s), Oral, BID Misc Medication (Policosanol): See Instructions, TID Labs: -POC B mg/dLPOC HbA1c: 7.6% (03/09/25) -Microalbumin:SCr: 1295 mcg/mg (12/05/24) Diabetes Labs No qualifying data available. Diabetes Type I Labs Cholesterol: 241 mg/dL High (02/27/25) HDL Cholesterol: 74 mg/dL High (02/27/25) LDL Cholesterol: 149 mg/dL High (02/27/25) Triglycerides: 89 mg/dL (02/27/25) Creatinine Lvl (s): 1.69 mg/dL High (01/13/25) TSH: 3.74 mcIU/mL (08/07/24) Hgb A1c: 8.3 % High (08/07/24) Yearly Diabetic Exams: -Eye Exam: Up to date, completed 2024 -Foot Exam: Up to date, does follow with healthcare management. Completed in 2024 Blood Glucose Monitoring: Did not bring in sugar readings to be reviewed. States readings are running in the 90s-150s throughout the day. Reminded him to bring blood sugar readings into the office to be reviewed. Acute Complications: -Hypoglycemia: Will notice that he feels a little off when his sugars are in the 90s. Educated him on properly correcting blood sugars. -Hyperglycemia: Denies signs or symptoms Nutrition & Physical Activity: Did meet with the dietitian and will be following up with her in April. Started using the elliptical this week twice daily for 30 minutes. Encouraged him to continue to focus on diet and exercise to aid in glucose control. Assessment and Plan: Long's A1c improved to 7.6%. This is still above goal. Did discuss this with him today and advised placing a Chiquis sample sensor to assess blood sugar readings more comprehensively, but he declined. Unable to titrate current medications any further and he would like to continue to work on diet and exercise changes to improve blood sugars. He did just start including physical activity more consistently into his routine which should help. Will not make any changes today, but did explicitly state to him that if A1c is not at goal in 3 months he will either need to have additional medication added or a Chiquis sensor placed. Patient voiced understanding and will see him back in 3 months when his next A1c is due. Instructed him to call with any issues prior to next visit. Total time spent caring for the patient today was 30 minutes. This includes time spent before the visit reviewing the chart (lab results, past visit documentation, etc.), time spent during the visit, and time spend after the visit on documentation, etc. Digitally Signed by Emani Lua PharmD on 03/09/2025 10:41 AM [facility] 01-23-2025 Note Vitals: -Weight: 191.4 pounds History and Physical: [facility] for a follow-up diabetic visit. His most recent A1c 9.4% (12/05/24). He is currently managed on metformin 1000mg twice daily and Jardiance 25mg daily. Long utilizes a glucometer to monitor his blood sugar. Medications: DME: See Instructions, Use as directed Brand type per insurance or patient preference; dx E11.9 DME: See Instructions, test BGT 1x/d, dispense #50, 11 refills; dx E11.9 DME: See Instructions, test BGT 1x/d, dispense #50, 11 refills; dx E11.9 DME: See Instructions, Place once sensor to the back of the upper arm every 14 days. Use reader or phone ethan for daily blood sugar checks. 1 month supply empagliflozin: 25 mg = 1 tab(s), Oral, qAM irbesartan: 150 mg = 1 tab(s), Oral, qDay isopropyl alcohol topical: See Instructions, test BGT 1x/d, dispense #50, 11 refills; dx E11.9 metFORMIN: 1,000 mg = 2 tab(s), Oral, BID Misc Medication (Policosanol): See Instructions, TID Labs: -POC B mg/[id number]: 9.4% (12/05/24) Diabetes Type I Labs Cholesterol: 295 mg/dL High (01/13/25) HDL Cholesterol: 100 mg/dL High (01/13/25) LDL Cholesterol: 176 mg/dL High (01/13/25) Triglycerides: 95 mg/dL (01/13/25) Creatinine Lvl (s): 1.69 mg/dL High (01/13/25) TSH: 3.74 mcIU/mL (08/07/24) Hgb A1c: 8.3 % High (08/07/24) Blood Glucose Monitoring: -Frequency: Long checked his blood sugar a few times per day, he checked it a handful of times in December but has not checked it since. He states he was out of town and did not take his glucometer. His sugars have also been good when he had checked them so he did not find it necessary. Encouraged Long to continue checking his blood sugar a few times per week. -Testing Results: Fastin, 143, 153, 134, 151, 125, 133, 139, 118 2-hours: 154, 125, 123, 148 Acute Complications: -Hypoglycemia: Denies any signs or symptoms of hypoglycemia. -Hyperglycemia: Denies any signs or symptoms of hyperglycemia. Nutrition: Met with church organist prior to today's visit. Will defer to her moving forward. Physical Activity: Long is riding his bike most days of the week weather permitting. Encouraged him to keep up the good work. Assessment and Plan: Reviewed Long's blood sugar log with him, very pleased with his readings. The majority of his readings are at goal or slightly above. He has been working on making better food choices and met with the church organist prior to today's appointment. Will defer to her moving forward. Long is also riding his bike most days of the week. He is tolerating his medications well and denies any signs or symptoms of hypoglycemia. Will not make any medication changes today. Long will follow-up in six weeks when his next A1c is due. Encouraged him to call the clinic with any questions or concerns between now and his next appointment. Total time spent caring for the patient today was 21 minutes. This includes time spent before the visit reviewing the chart (lab results, past visit documentation, etc.), time spent during the visit, and time spend after the visit on documentation, sending in prescriptions, consulting with peers, etc. Digitally Signed by Ivan Nguyen PharmD on 01/23/2025 09:46 AM [facility] 01-23-2025 Note Vitals: -Weight: 191.4 pounds History and Physical: [facility] for a follow-up diabetic visit. His most recent A1c 9.4% (12/05/24). He is currently managed on metformin 1000mg twice daily and Jardiance 25mg daily. Long utilizes a glucometer to monitor his blood sugar. Medications: DME: See Instructions, Use as directed Brand type per insurance or patient preference; dx E11.9 DME: See Instructions, test BGT 1x/d, dispense #50, 11 refills; dx E11.9 DME: See Instructions, test BGT 1x/d, dispense #50, 11 refills; dx E11.9 DME: See Instructions, Place once sensor to the back of the upper arm every 14 days. Use reader or phone ethan for daily blood sugar checks. 1 month supply empagliflozin: 25 mg = 1 tab(s), Oral, qAM irbesartan: 150 mg = 1 tab(s), Oral, qDay isopropyl alcohol topical: See Instructions, test BGT 1x/d, dispense #50, 11 refills; dx E11.9 metFORMIN: 1,000 mg = 2 tab(s), Oral, BID Misc Medication (Policosanol): See Instructions, TID Labs: -POC B mg/fXAvK2o: 9.4% (12/05/24) Diabetes Type I Labs Cholesterol: 295 mg/dL High (01/13/25) HDL Cholesterol: 100 mg/dL High (01/13/25) LDL Cholesterol: 176 mg/dL High (01/13/25) Triglycerides: 95 mg/dL (01/13/25) Creatinine Lvl (s): 1.69 mg/dL High (01/13/25) TSH: 3.74 mcIU/mL (08/07/24) Hgb A1c: 8.3 % High (08/07/24) Blood Glucose Monitoring: -Frequency: Long checked his blood sugar a few times per day, he checked it a handful of times in December but has not checked it since. He states he was out of town and did not take his glucometer. His sugars have also been good when he had checked them so he did not find it necessary. Encouraged Long to continue checking his blood sugar a few times per week. -Testing Results: Fastin, 143, 153, 134, 151, 125, 133, 139, 118 2-hours: 154, 125, 123, 148 Acute Complications: -Hypoglycemia: Denies any signs or symptoms of hypoglycemia. -Hyperglycemia: Denies any signs or symptoms of hyperglycemia. Nutrition: Met with church organist prior to today's visit. Will defer to her moving forward. Physical Activity: Long is riding his bike most days of the week weather permitting. Encouraged him to keep up the good work. Assessment and Plan: Reviewed Long's blood sugar log with him, very pleased with his readings. The majority of his readings are at goal or slightly above. He has been working on making better food choices and met with the church organist prior to today's appointment. Will defer to her moving forward. Long is also riding his bike most days of the week. He is tolerating his medications well and denies any signs or symptoms of hypoglycemia. Will not make any medication changes today. Long will follow-up in six weeks when his next A1c is due. Encouraged him to call the clinic with any questions or concerns between now and his next appointment. Total time spent caring for the patient today was 21 minutes. This includes time spent before the visit reviewing the chart (lab results, past visit documentation, etc.), time spent during the visit, and time spend after the visit on documentation, sending in prescriptions, consulting with peers, etc. Digitally Signed by Ivan NguyenD on 01/23/2025 09:46 AM [facility] 12-11-2024 Note Vitals: -BP: 162/87Weight: 192 lbs History & Physical: [facility]. His last A1c was elevated at 9.4%. He has been managed on metformin 1000mg BID and Jardiance 25mg daily. Appears he was sent over for assistance with getting a Chiquis system placed that he had already received. Unfortunately, he states he got paperwork in the mail that said they were not running accurately and threw it out. He does have a glucometer at home that he has been using periodically. Past Medical History: Problems Active Pure hypercholesterolemia Essential hypertension Type 2 diabetes mellitus with hyperlipidemia Cerumen impaction Screening for prostate cancer Screening for colon cancer Social History: -Tobacco: Denies use -Alcohol: Occasionally, few glasses of wine each month Medications: DME: See Instructions, Use as directed Brand type per insurance or patient preference; dx E11.9 DME: See Instructions, test BGT 1x/d, dispense #50, 11 refills; dx E11.9 DME: See Instructions, test BGT 1x/d, dispense #50, 11 refills; dx E11.9 DME: See Instructions, Place once sensor to the back of the upper arm every 14 days. Use reader or phone ethan for daily blood sugar checks. 1 month supply empagliflozin: 25 mg = 1 tab(s), Oral, qAM irbesartan: 150 mg = 1 tab(s), Oral, qDay isopropyl alcohol topical: See Instructions, test BGT 1x/d, dispense #50, 11 refills; dx E11.9 metFORMIN: 1,000 mg = 2 tab(s), Oral, BID Misc Medication (Policosanol): See Instructions, TID Labs: -POC B mg/dLPOC HbA1c: 9.4% (12/05/24) -Microalbumin:SCr: 1295 mg/gm (12/05/24) Diabetes Labs No qualifying data available. Diabetes Type I Labs Cholesterol: 247 mg/dL High (08/07/24) HDL Cholesterol: 81 mg/dL High (08/07/24) LDL Cholesterol: 149 mg/dL High (08/07/24) Triglycerides: 84 mg/dL (08/07/24) Creatinine Lvl (s): 0.96 mg/dL (08/07/24) TSH: 3.74 mcIU/mL (08/07/24) Hgb A1c: 8.3 % High (08/07/24) Immunizations: -Influenza: Denies -Pneumococcal: Denies -COVID-19: First 2 doses completed Diabetic Exams -Foot Exam: Follows with a healthcare management. Suspects there is mild neuropathy -Eye Exam: Yearly eye exams, last 1 in December 2023. States he is scheduled later this month for his visit. Blood Glucose Monitoring: -Frequency: Fasting blood sugars a few times per week -Testing Results: 148,163,142,161,165,167,265,194,187 Acute Complications: -Hypoglycemia: Denies signs or symptoms. Educated patient on proper hypoglycemia management. -Hyperglycemia: Denies signs or symptoms Nutrition: -B: eggs or an omelette with fresh fruit -L: soup and salad with grilled chicken -D: meat and veggies -Snacks: ice cream, almonds, beef sticks, chips, crackers and cheese -Drinks: water, coffee, unsweetened ice tea Discussed the importance of limiting carbohydrate intake and focus on having a high fiber and high protein diet. He is scheduled to meet with Gladys next month to establish. Physical Activity: Started biking again. Physical activity was significantly reduced starting last February due to developing a foot ulcer. This is almost completely healed, but has been working towards more consistent physical activity. Patient was educated on the importance of doing moderate physical activity for at least 150 minutes per week spread over at least 3 days per week. Assessment and Plan: Discussed general diabetes education today with Long. Reviewed blood sugar goals, A1c goals, diabetic complications, hyper- and hypoglycemia management, diet/exercise, etc. All questions were answered. Patient decided he wishes to hold off on using a CGM and wants to stick with fingersticks. Discussed the extensive benefits of a CGM and he is aware that this may need to be utilized in the future. Limited blood sugars available, but appear to be mildly elevated. Do not correlate with 9.4% A1c. Unclear if he has been changing his diet around more recently and that is why blood sugars are improved. He is going to focus on lifestyle changes, meet with the dietitian, and check his blood sugars once daily for the next month. Once data is available will meet again and determine plan moving forward. He is agreeable to this. Instructed him to call with any issues and will meet with Long in 4 weeks. Total time spent caring for the patient today was 62 minutes. This includes time spent before the visit reviewing the chart (lab results, past visit documentation, etc.), time spent during the visit, and time spend after the visit on documentation, etc. Digitally Signed by Emani LuaD on 12/11/2024 03:37 PM [facility] 12-05-2024 Evaluation + Plan note Diagnostic Tests PendingGAD-65 Autoantibody 12/05/24 Future Scheduled TestsLipoprotein (a) 02/04/25Basic Metabolic Panel 02/04/25Lipid Profile 02/04/25 [facility] 09-17-2023 Evaluation + Plan note Extrac chadd from: Title:History and Physical Author:SUKHJINDER KRAMER MD Date:09/17/23 Orders: Lactated Ringers Infusion 1,000 mL, Start: 09/17/23 10:15:00 EST, Rate: 20 mL/hr, 09/17/23 10:15:00 EST Communication Order (scheduled) Communication Order (scheduled) Communication Order (scheduled) Consult to Anesthesia Sign Consent He is here for screening colonoscopy. Consent conference held. Future Scheduled Tests Laboratory* Prostate Specific Antigen 03/31/23 * A1C Hemoglobin 07/01/23 * Complete Blood Count 03/31/23 * Lipid Profile 03/31/23 * Hepatitis C Antibody IgG 03/31/23 * Complete Metabolic Panel 03/31/23 [facility] 12-15-2023 Hospital Discharge instructions Patient Education 09/17/2023 11:34:06 Colon Polyps Colon Polyps Polyps are tissue growths inside the body. Polyps can grow in many places, including the large intestine (colon). A polyp may be a round bump or a mushroom-shaped growth. You could have one polyp or several. Most colon polyps are noncancerous (benign). However, some colon polyps can become cancerous over time. Finding and removing the polyps early can help prevent this. What are the causes? The exact cause of colon polyps is not known. What increases the risk? You are more likely to develop this condition if you: Have a family history of colon cancer or colon polyps. Are older than 50 or older than 45 if you are . Have inflammatory bowel disease, such as ulcerative colitis or Crohn's disease. Have certain hereditary conditions, such as: ?Familial adenomatous polyposis. ?Topete syndrome. ?Turcot syndrome. ?Peutz Jeghers syndrome. Are overweight. Smoke cigarettes. Do not get enough exercise. Drink too much alcohol. Eat a diet that is high in fat and red meat and low in fiber. Had childhood cancer that was treated with abdominal radiation. What are the signs or symptoms? Most polyps do not cause symptoms. If you have symptoms, they may include: Blood coming from your rectum when having a bowel movement. Blood in your stool. The stool may look dark red or black. Abdominal pain. A change in bowel habits, such as constipation or diarrhea. How is this diagnosed? This condition is diagnosed with a colonoscopy. This is a procedure in which a lighted, flexible scope is inserted into the anus and then passed into the colon to examine the area. Polyps are sometimes found when a colonoscopy is done as part of routine cancer screening tests. How is this treated? Treatment for this condition involves removing any polyps that are found. Most polyps can be removed during a colonoscopy. Those polyps will then be tested for cancer. Additional treatment may be needed depending on the results of testing. Follow these instructions at home: Lifestyle Maintain a healthy weight, or lose weight if recommended by your health care provider. Exercise every day or as told by your health care provider. Do not use any products that contain nicotine or tobacco, such as cigarettes and e-cigarettes. If you need help quitting, ask your health care provider. If you drink alcohol, limit how much you have: ?0 1 drink a day for women. ? 0 2 drinks a day for men. Be aware of how much alcohol is in your drink. In the [place] one drink equals one 12 oz bottle of beer (355 mL), one 5 oz glass of wine (148 mL), or one 1 oz shot of hard liquor (44 mL). Eating and drinking Eat foods that are high in fiber, such as fruits, vegetables, and whole grains. Eat foods that are high in calcium and vitamin D, such as milk, cheese, yogurt, eggs, liver, fish, and broccoli. Limit foods that are high in fat, such as fried foods and desserts. Limit the amount of red meat and processed meat you eat, such as hot dogs, sausage, humphrey, and lunch meats. General instructions Keep all follow-up visits as told by your health care provider. This is important. ?This includes having regularly scheduled colonoscopies. ?Talk to your health care provider about when you need a colonoscopy. Contact a health care provider if: You have new or worsening bleeding during a bowel movement. You have new or increased blood in your stool. You have a change in bowel habits. You lose weight for no known reason. Summary Polyps are tissue growths inside the body. Polyps can grow in many places, including the colon. Most colon polyps are noncancerous (benign), but some can become cancerous over time. This condition is diagnosed with a colonoscopy. Treatment for this condition involves removing any polyps that are found. Most polyps can be removed during a colonoscopy. This information is not intended to replace advice given to you by your health care provider. Make sure you discuss any questions you have with your health care provider. Document Released: 06/16/2005 Document Revised: 01/05/2019 Document Reviewed: 01/05/2019 [employer] Patient Education 2020 [employer]. 09/17/2023 11:16:59 Colonoscopy, Adult, Care After Colonoscopy, Adult, Care After This sheet gives you information about how to care for yourself after your procedure. Your health care provider may also give you more specific instructions. If you have problems or questions, contact your health care provider. What can I expect after the procedure? After the procedure, it is common to have: A small amount of blood in your stool for 24 hours after the procedure. Some gas. Mild abdominal cramping or bloating. Follow these instructions at home: General instructions For the first 24 hours after the procedure: ?Do not drive or use machinery. ?Do not sign important documents. ?Do not drink alcohol. ?Do your regular daily activities at a slower pace than normal. ?Eat soft, ldgd-pj-tzmvtv foods. Take nfaf-cpo-uqnywuh or prescription medicines only as told by your health care provider. Relieving cramping and bloating Try walking around when you have cramps or feel bloated. Apply heat to your abdomen as told by your health care provider. Use a heat source that your healthcare provider recommends, such as a moist heat pack or a heating pad. ?Place a towel between your skin and the heat source. ?Leave the heat on for 20 30 minutes. ?Remove the heat if your skin turns bright red. This is especially important if you are unable to feel pain, heat, or cold. You may have a greater risk of getting burned. Eating and drinking Drink enough fluid to keep your urine pale yellow. Resume your normal diet as instructed by your health care provider. Avoid heavy or fried foods thatare hard to digest. Avoid drinking alcohol for as long as instructed by your health care provider. Contact a health care provider if: You have blood in your stool 2 3 days after the procedure. Get help right away if: You have more than a small spotting of blood in your stool. You pass large blood clots in your stool. Your abdomen is swollen. You have nausea or vomiting. You have a fever. You have increasing abdominal pain that is not relieved with medicine. Summary After the procedure, it is common to have a small amount of blood in your stool. You may also have mild abdominal cramping and bloating. For the first 24 hours after the procedure, do not drive or use machinery, sign important documents, or drink alcohol. Contact your health care provider if you have a lot of blood in your stool, nausea or vomiting, a fever, or increased abdominal pain. This information is not intended to replace advice given to you by your health care provider. Make sure you discuss any questions you have with your health care provider. Document Released: 05/04/2005 Document Revised: 07/13/2018 Document Reviewed: 12/01/2016 [employer] Patient Education 2020 [employer]. 09/17/2023 11:16:53 Monitored Anesthesia Care, Care After Monitored Anesthesia Care, Care After These instructions provide you with information about caring for yourself after your procedure. Your health care provider may also give you more specific instructions. Your treatment has been plannedaccording to current medical practices, but problems sometimes occur. Call your health care provider if you have any problems or questions after your procedure. What can I expect after the procedure? After your procedure, you may: Feel sleepy for several hours. Feel clumsy and have poor balance for several hours. Feel forgetful about what happened after the procedure. Have poor judgment for several hours. Feel nauseous or vomit. Have a sore throat if you had a breathing tube during the procedure. Follow these instructions at home: For at least 24 hours after the procedure: Have a responsible adult stay with you. It is important to have someone help care for you until youare awake and alert. Rest as needed. Do not: ?Participate in activities in which you could fall or become injured. ?Drive. ?Use heavy machinery. ?Drink alcohol. ?Take sleeping pills or medicines that cause drowsiness. ?Make important decisions or sign legal documents. ?Take care of children on your own. Eating and drinking Follow the diet that is recommended by your health care provider. If you vomit, drink water, juice, or soup when you can drink without vomiting. Make sure you have little or no nausea before eating solid foods. General instructions Take wlhu-aju-dgawzxw and prescription medicines only as told by your health care provider. If you have sleep apnea, surgery and certain medicines can increase your risk for breathing problems. Follow instructions from your health care provider about wearing your sleep device: ?Anytime you are sleeping, including during daytime naps. ?While taking prescription pain medicines, sleeping medicines, or medicines that make you drowsy. If you smoke, do not smoke without supervision. Keep all follow-up visits as told by your health care provider. This is important. Contact a health care provider if: You keep feeling nauseous or you keep vomiting. You feel light-headed. You develop a rash. You have a fever. Get help right away if: You have trouble breathing. Summary For several hours after your procedure, you may feel sleepy and have poor judgment. Have a responsible adult stay with you for at least 24 hours or until you are awake and alert. This information is not intended to replace advice given to you by your health care provider. Make sure you discuss any questions you have with your health care provider. Document Released: 01/10/2017 Document Revised: 12/19/2018 Document Reviewed: 01/10/2017 [employer] Patient Education 2020 [employer]. Follow Up Care 08/09/2023 12:51:17 With:BJ KRAMER MD, Clinical Gastroenterology Address: [address] [place] [address] [place] [phone]- [phone] When: Unknown Comments:Follow-up as needed [facility] 12-15-2023 Summary of episode note Discharge Instructions Thank you for allowing [facility] to assist you with your healthcare needs. The following is importantdischarge information regarding your hospital visit. Your Care Team WOLF DREW DO Your Diagnosis Colonoscopy What to do next Follow Up Appointments Follow Up with BJ KRAMER MD, Clinical Gastroenterology When Why: Follow-up as needed Where: [address] [place] [address] Gastro[place], [place] [phone] The Following Activity and Diet Have Been Ordered for You Discharge Activity - Ordered -- Other, Follow the post-operative/post-procedure activity instructions provided by your physician's office., 09/17/23 11:32:00 EST Discharge Diet - Ordered -- Follow the post-operative/post-procedure diet instructions provided by your physician's office.,09/17/23 11:32:00 EST Allergies NKA Medications Please ask your primary doctor or pharmacist before taking any other medication not listed, including over the counter drugs, herbal medications, vitamins and or supplements as they may interact withyour home medications. What How Much When Why Instructions Last Dose Unchanged DME (Blood Glucose Test Machine) See instructions Use as directed Brand type per insurance or patient preference; dx E11.9 Unchanged DME (Blood Glucose Test Strips) See instructions test BGT 1x/ d, dispense #50, 11 refills; dx E11.9 Unchanged DME (Lancets) See instructions test BGT 1x/ d, dispense #50, 11 refills; dx E11.9 Unchanged empagliflozin (Jardiance 10 mg oral tablet) 1 tab(s) by mouth Once a day (in the morning) Unchanged isopropyl alcohol topical ([employer]col Alcohol Preps 70% topical pad) See instructions test BGT 1x/ d, dispense #50, 11 refills; dx E11.9 Unchanged lisinopril (lisinopril 10 mg oral tablet) 1 tab(s) by mouth Once a day Hypertension Unchanged metFORMIN (metFORMIN 500 mg oral tablet (IR)) 1 tab(s) by mouth Two (2) times a day Please take this list to your next doctor s visit. Bring all medications you take, including over the counter medications, herbals and other supplements with you to your doctor s visit. Patients and families are reminded to discard old lists and to update any records with all medication providers or retail pharmacies. Education Materials Colon Polyps Polyps are tissue growths inside the body. Polyps can grow in many places, including the large intestine (colon). A polyp may be a round bump or a mushroom-shaped growth. You could have one polyp or several. Most colon polyps are noncancerous (benign). However, some colon polyps can become cancerous over time. Finding and removing the polyps early can help prevent this. What are the causes? The exact cause of colon polyps is not known. What increases the risk? You are more likely to develop this condition if you: Have a family history of colon cancer or colon polyps. Are older than 50 or older than 45 if you are . Have inflammatory bowel disease, such as ulcerative colitis or Crohn's disease. Have certain hereditary conditions, such as: ? Familial adenomatous polyposis. ? Topete syndrome. ? Turcot syndrome. ? Peutz Jeghers syndrome. Are overweight. Smoke cigarettes. Do not get enough exercise. Drink too much alcohol. Eat a diet that is high in fat and red meat and low in fiber. Had childhood cancer that was treated with abdominal radiation. What are the signs or symptoms? Most polyps do not cause symptoms. If you have symptoms, they may include: Blood coming from your rectum when having a bowel movement. Blood in your stool. The stool may look dark red or black. Abdominal pain. A change in bowel habits, such as constipation or diarrhea. How is this diagnosed? This condition is diagnosed with a colonoscopy. This is a procedure in which a lighted, flexible scope is inserted into the anus and then passed into the colon to examine the area. Polyps are sometimes found when a colonoscopy is done as part of routine cancer screening tests. How is this treated? Treatment for this condition involves removing any polyps that are found. Most polyps can be removed during a colonoscopy. Those polyps will then be tested for cancer. Additional treatment may be needed depending on the results of testing. Follow these instructions at home: Lifestyle Maintain a healthy weight, or lose weight if recommended by your health care provider. Exercise every day or as told by your health care provider. Do not use any products that contain nicotine or tobacco, such as cigarettes and e-cigarettes. If you need help quitting, ask your health care provider. If you drink alcohol, limit how much you have: ? 0 1 drink a day for women. ? 0 2 drinks a day for men. Be aware of how much alcohol is in your drink. In the [place] one drink equals one 12 oz bottle of beer (355 mL), one 5 oz glass of wine (148 mL), or one 1 oz shot of hard liquor (44 mL). Eating and drinking Eat foods that are high in fiber, such as fruits, vegetables, and whole grains. Eat foods that are high in calcium and vitamin D, such as milk, cheese, yogurt, eggs, liver, fish, and broccoli. Limit foods that are high in fat, such as fried foods and desserts. Limit the amount of red meat and processed meat you eat, such as hot dogs, sausage, humphrey, and lunch meats. General instructions Keep all follow-up visits as told by your health care provider. This is important. ? This includes having regularly scheduled colonoscopies. ? Talk to your health care provider about when you need a colonoscopy. Contact a health care provider if: You have new or worsening bleeding during a bowel movement. You have new or increased blood in your stool. You have a change in bowel habits. You lose weight for no known reason. Summary Polyps are tissue growths inside the body. Polyps can grow in many places, including the colon. Most colon polyps are noncancerous (benign), but some can become cancerous over time. This condition is diagnosed with a colonoscopy. Treatment for this condition involves removing any polyps that are found. Most polyps can be removed during a colonoscopy. This information is not intended to replace advice given to you by your health care provider. Make sure you discuss any questions you have with your health care provider. Document Released: 06/16/2005 Document Revised: 01/05/2019 Document Reviewed: 01/05/2019 [employer] Patient Education 2020 [employer]. Colonoscopy, Adult, Care After This sheet gives you information about how to care for yourself after your procedure. Your health care provider may also give you more specific instructions. If you have problems or questions, contact your health care provider. What can I expect after the procedure? After the procedure, it is common to have: A small amount of blood in your stool for 24 hours after the procedure. Some gas. Mild abdominal cramping or bloating. Follow these instructions at home: General instructions For the first 24 hours after the procedure: ? Do not drive or use machinery. ? Do not sign important documents. ? Do not drink alcohol. ? Do your regular daily activities at a slower pace than normal. ? Eat soft, zmcn-vu-yzfuvm foods. Take jlbq-mpp-ogvukns or prescription medicines only as told by your health care provider. Relieving cramping and bloating Try walking around when you have cramps or feel bloated. Apply heat to your abdomen as told by your health care provider. Use a heat source that your healthcare provider recommends, such as a moist heat pack or a heating pad. ? Place a towel between your skin and the heat source. ? Leave the heat on for 20 30 minutes. ? Remove the heat if your skin turns bright red. This is especially important if you are unable to feel pain, heat, or cold. You may have a greater risk of getting burned. Eating and drinking Drink enough fluid to keep your urine pale yellow. Resume your normal diet as instructed by your health care provider. Avoid heavy or fried foods thatare hard to digest. Avoid drinking alcohol for as long as instructed by your health care provider. Contact a health care provider if: You have blood in your stool 2 3 days after the procedure. Get help right away if: You have more than a small spotting of blood in your stool. You pass large blood clots in your stool. Your abdomen is swollen. You have nausea or vomiting. You have a fever. You have increasing abdominal pain that is not relieved with medicine. Summary After the procedure, it is common to have a small amount of blood in your stool. You may also have mild abdominal cramping and bloating. For the first 24 hours after the procedure, do not drive or use machinery, sign important documents, or drink alcohol. Contact your health care provider if you have a lot of blood in your stool, nausea or vomiting, a fever, or increased abdominal pain. This information is not intended to replace advice given to you by your health care provider. Make sure you discuss any questions you have with your health care provider. Document Released: 05/04/2005 Document Revised: 07/13/2018 Document Reviewed: 12/01/2016 [employer] Patient Education 2020 [employer] Monitored Anesthesia Care, Care After These instructions provide you with information about caring for yourself after your procedure. Your health care provider may also give you more specific instructions. Your treatment has been plannedaccording to current medical practices, but problems sometimes occur. Call your health care provider if you have any problems or questions after your procedure. What can I expect after the procedure? After your procedure, you may: Feel sleepy for several hours. Feel clumsy and have poor balance for several hours. Feel forgetful about what happened after the procedure. Have poor judgment for several hours. Feel nauseous or vomit. Have a sore throat if you had a breathing tube during the procedure. Follow these instructions at home: For at least 24 hours after the procedure: Have a responsible adult stay with you. It is important to have someone help care for you until youare awake and alert. Rest as needed. Do not: ? Participate in activities in which you could fall or become injured. ? Drive. ? Use heavy machinery. ? Drink alcohol. ? Take sleeping pills or medicines that cause drowsiness. ? Make important decisions or sign legal documents. ? Take care of children on your own. Eating and drinking Follow the diet that is recommended by your health care provider. If you vomit, drink water, juice, or soup when you can drink without vomiting. Make sure you have little or no nausea before eating solid foods. General instructions Take zhrt-ieq-ttdujdi and prescription medicines only as told by your health care provider. If you have sleep apnea, surgery and certain medicines can increase your risk for breathing problems. Follow instructions from your health care provider about wearing your sleep device: ? Anytime you are sleeping, including during daytime naps. ? While taking prescription pain medicines, sleeping medicines, or medicines that make you drowsy. If you smoke, do not smoke without supervision. Keep all follow-up visits as told by your health care provider. This is important. Contact a health care provider if: You keep feeling nauseous or you keep vomiting. You feel light-headed. You develop a rash. You have a fever. Get help right away if: You have trouble breathing. Summary For several hours after your procedure, you may feel sleepy and have poor judgment. Have a responsible adult stay with you for at least 24 hours or until you are awake and alert. This information is not intended to replace advice given to you by your health care provider. Make sure you discuss any questions you have with your health care provider. Document Released: 01/10/2017 Document Revised: 12/19/2018 Document Reviewed: 01/10/2017 [employer] Patient Education 2020 [employer] Additional Information VACCINATE! IT SAVES LIVES! Members of the community who have not yet received the COVID-19 vaccine and would like to receive it can visit one of [facility] vaccine clinics. There are many vaccine clinic locations within the [facility]. For locations and available times, please visit [email or web address].[place].gov/. It is important to note that some COVID mobile vaccine clinics are held outdoors and may be canceled in rainy or stormy conditions. To learn more about pediatric vaccinations (ages 5-11), we invite you to visit the [facility] webpage. [email or web address]/pages/[email or web address]-[email or web address]-[email or web address] [email or web address] learn more about the COVID-19 vaccine, we invite you to visit the CDC website for a list of frequently asked questions.https://www.cdc.gov/coronavirus/2019-ncov/vaccines/faq.html [facility] Patient Portal Access Instructions: Stay connected with your healthcare team and access your personal medical information anytime with the [facility] Patient Portal. Please follow the directions below to create your [employer] account: 1.Access the email account you provided upon registration to the hospital/physician office.2.Look for an invitation email from [facility].3.Open the email and access the invitation link: AcceptInvitation to [facility].4.Fill in the required combs to create your account. To access your account, visit [email or web address]. Click the blue button labeled Access Patient Portal and then log in with the username and password that you created in the steps above. You will be able to view your test results, lab results, a summary of your visits, upcoming appointments and more. There is also a convenient messaging option where you can send secure messages to your p rovider. In addition, you will have the ability to download any documents or summaries to your computer and/or send the information securely to a physician. Remember that your healthcare information is confidential, so carefully consider who you will allowto register on the [facility] Patient Portal for access to your information. You can also access the [facility] Patient Portal on the [employer]where ethan. Simply click on Patient Portal and then log into your account. If you would like to receive a full copy of your medical records, please contact the [facility] Medical Records Department by calling [phone], Wednesday through Wednesday between 8 a.m. and 4:30 p.m. HOW TO SAFELY DISPOSE OF PRESCRIPTION MEDICATIONS Please use one of the following methods to safely dispose of your unused medications. 1.Use a drug disposal kit: the drug disposal pouch allows you to safely discard your old and unuseddrugs. Ask your nurse to give you one when you are discharged.2.Visit a local take-back location: Many local pharmacies and police departments have programs that collect old and unwanted prescriptiondrugs. Call your local pharmacy or go to http://Justyle[employer]/1J0Fb0f to find one close to you.3.Make use of household items: Use cat litter or old coffee grounds to dispose medications if other options arenot available. Mix your drugs with these household products, seal them in an airtight container andthrow it into the garbage. Call [facility]: [phone] to be sure your drugs can be disposed of in this way. Some medicines may require a different approach.4.Never flush your medications down the toilet. IF YOU HAVE BEEN PRESCRIBED AN OPIOID FOR PAIN If you have been prescribed an opioid (such as hydrocodone, oxycodone or morphine), it is critical to understand the possible side effects and risks of opioid pain medications. Even when taken as directed, opioids can have several side effects including: Tolerance, meaning you might need to take more of a medication for the same pain relief. Nausea, vomiting and/or constipation. Sleepiness, dizziness, dry mouth, confusion, depression or itching. Physical dependence, meaning you have withdrawal symptoms when a medication is stopped, can develop within a few days. KNOW YOUR RESPONSIBILITIES It is important to know exactly how much and how often to take the opioid pain medications you are prescribed. Never take opioids in higher amounts or more often than prescribed. Do not combine opioids with alcohol or other drugs that cause drowsiness, such as benzodiazepines, also known as benzos, including diazepam and alprazolam, muscle relaxants or sleep aids. Never sell or share prescription opioids. This is illegal. Store opioids in a secure place and out of reach of others (including children, family, friends and visitors). The last page of this document has been signed and retained as a CHART COPY. Signatures Patient Education Materials Colon Polyps Colonoscopy, Adult, Care After Monitored Anesthesia Care, Care After Medication Leaflets My discharge plan and instructions have been reviewed and explained to me and IANNY BRENT E understand my current condition and have read and understand these discharge instructions. I have received a written copy of the plan/instructions. If I have questions, I am aware that I should contact my d octor. 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 Family's history: negative. Review of Systems Ear/Nose/Mouth/Throat: Negative. Respiratory: Negative. Cardiovascular: htn. Gastrointestinal: Negative. Genitourinary: Negative. Endocrine: DM. Musculoskeletal: Negative. Integumentary: Negative. Neurologic: Negative. Health Status Allergies: Allergic Reactions (Selected) NKA, Allergies (1) ActiveReaction NKANone Documented Current medications: (Selected) Inpatient Medications Ordered Lactated Ringers Infusion 1,000 mL: 20 mL/hr, Intravenous Prescriptions Prescribed Blood Glucose Test Machine: See Instructions, Use as directed Brand type per insurance or patient preference; dx E11.9, 1 EA, 0 Refill(s) Blood Glucose Test Strips: See Instructions, test BGT 1x/d, dispense #50, 11 refills; dx E11.9, 50 EA, 11 Refill(s) Jardiance 10 mg oral tablet: 10 mg, 1 tab(s), Oral, qAM, 90 tab(s), 0 Refill(s) Lancets: See Instructions, test BGT 1x/d, dispense #50, 11 refills; dx E11.9, 50 EA, 11 Refill(s) Webcol Alcohol Preps 70% topical pad: See Instructions, test BGT 1x/d, dispense #50, 11 refills; dxE11.9, 50 EA, 0 Refill(s) lisinopril 10 mg oral tablet: 10 mg, 1 tab(s), Oral, qDay, 30 tab(s), 3 Refill(s) metFORMIN 500 mg oral tablet (IR): 500 mg, 1 tab(s), Oral, BID, 180 tab(s), 3 Refill(s), Medications (1) Active Scheduled: (0) Continuous: (1) Lactated Ringers 1,000 mL 1,000 mL, Intravenous, 20 mL/hr PRN: (0) Problem list: Medical Diabetes mellitus / SNOMED CT 261959903 / Confirmed Hypertension / SNOMED CT 3248947919 / Confirmed Cerumen impaction / SNOMED CT 78570430 / Confirmed Screening for colon cancer / SNOMED CT 460333414 / Confirmed Screening for prostate cancer / SNOMED CT 026415730 / Confirmed Type 2 diabetes mellitus / SNOMED CT 187421804 / Confirmed Need for hepatitis C screening test / SNOMED CT 350282906 / Confirmed, Active Problems (7) Cerumen impaction Diabetes mellitus Hypertension Need for hepatitis C screening test Screening for colon cancer Screening for prostate cancer Type 2 diabetes mellitus Histories Past Medical History: No active or resolved past medical history items have been selected or recorded. Family History: Entire family history is negative. Procedure history: No active procedure history items have been selected or recorded. 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 Physical Examination Vital Signs 09/17/2023 10:19 EST Temperature Temporal Artery 36.4 DegC Apical Heart Rate 91 bpm Respiratory Rate 13 br/min LOW Systolic Blood Pressure Non-Invasive 160 mmHg HI Diastolic Blood Pressure Non-Invasive 95 mmHg HI Blood Pressure Method Automatic Blood Pressure Location Left arm Blood Pressure Cuff Size Large Vital Signs(last 24 hrs) Last Charted Resp Rate L 13br/min (SEP 17 10:19) SBPH 160mmHg (SEP 17 10:) DBPH 95mmHg (SEP 17:19) BMI25.25 (SEP 17 10:19) Measurements from flowsheet : Measurements 09/17/2023 10:19 EST Height 180 cm Admission Weight 81.8 kg Weight Method Stated Elkin Body Weight 74.99 kg BSA Admission 2.02 Body Mass Index 25.25 kg/m2 Pain assessment: Pain Assessment 09/17/2023 10:19 EST Primary Pain Intensity 0 Pain Scale Type 0-10 Pain scale . General: Alert and oriented. Airway: Normal temporomandibular joint mobility. Mallampati classification: II (soft palate, fauces, uvula visible). Head: Normocephalic. Dentition Evaluation: Own teeth. Neck: Supple. Respiratory: Lungs are clear to auscultation. Cardiovascular: Normal rate. Heart Sounds: Normal. Gastrointestinal: Soft. Musculoskeletal Normal range of motion. Integumentary: Intact. Neurologic: Alert, Oriented. Review / Management Results review: No qualifying data available , Lab results 09/17/2023 11:03 EST SN - Proc - Anesthesia Type MAC SN - Proc - EBL 0 mL SN - Proc - Actual Procedure COLONOSCOPY 09/17/2023 11:01 EST SN - CAt - Case Attendee SN - CAt - Case Attendee SN - CAt - Case Attendee SN - CAt - Case Attendee SN - CAt - Case Attendee SN - CAt - Case Attendee SN - CAt - Case Attendee SN - CAt - Case Attendee SN - CAt - Role Performed Primary Surgeon SN - CAt - Role Performed Assessment Analyst 1 SN - CAt - Role Performed Board Certified Arts Therapist SN - CAt - Role Performed EVENT PLANNER 09/17/2023 10:59 EST Christine Pre-Surgical History & Physical History and Physical 09/17/2023 10:30 EST Lactated Ringers Injection Begin Bag 1,000 mL mL 09/17/2023 10:29 EST Continuous IV Infusions LR Hand Right 09/17/2023 20 gauge Peripheral IV Activity: Insert new site Peripheral IV Dressing Condition: Clean, Dry, Intact Peripheral IV Dressing Activity: Applied, Transparent dressing Peripheral IV Line Status/Patency: Flushes easily, Continuous infusion Peripheral IV Site Condition: No complications Peripheral IV Equipment: Extension set 09/17/2023 10:24 EST IV Present Present Allergies No Anesthesia Extension 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 Consent Form Signed Yes Patient Dressed In Hospital gown History & Physical Update On Chart Yes History & Physical On Chart Yes Belongings At Bedside Pants, Shirt, Shoes, Socks, Undergarments NPO Status Maintained Allergy Band on and Verified No Patient ID Band on and Verified Yes Implants Verified Yes Pacemaker/AICD Verified Yes Site Verified by Patient/Family Yes Anesthesia Consent Signed Yes Last Fluid Intake 09/17/2023 8:00 Last Food Intake 09/14/2023 18:00 Last Void 09/17/2023 10:25 09/17/2023 10:19 EST Designated Person #1 We May Share PHI Braulio [id number] Designated Person #1 Relationship Spouse Height 180 cm Admission Weight 81.8 kg Weight Method Stated Elkin Body Weight 74.99 kg BSA Admission 2.02 Body Mass Index 25.25 kg/m2 Temperature Temporal Artery 36.4 DegC Apical Heart Rate 91 bpm Respiratory Rate 13 br/min LOW Systolic Blood Pressure Non-Invasive 160 mmHg HI Diastolic Blood Pressure Non-Invasive 95 mmHg HI Blood Pressure Method Automatic Blood Pressure Location Left arm Blood Pressure Cuff Size Large Primary Pain Intensity 0 Pain Scale Type 0-10 Pain scale Heart Rhythm Regular Cardiac Rhythm Sinus rhythm Respirations Unlabored Respiratory Pattern Regular All Lobes Breath Sounds Clear Oxygen Therapy Room air Oxygen Saturation 98 % Abdomen Description Non-distended Bowel Sounds All Quadrants Present Status N/A Neurological Symptoms Patient denies Strength All Extremities Strong Tone All Extremities Normal Sensation All Extremities Intact Sensory Deficits None Infectious Disease Symptoms Patient states no symptoms Infectious Disease Recent Exposure No Alcohol and Drug Use No Employee of Institutional Living No Health Care Employee No History of Exposure to TB No History of Positive Chest X-Ray for TB No History of Positive TB Skin Test No Homeless No Known Immunosuppression No Recent Immigrant No Resident of Institutional Living No Bloody Sputum No Fatigue No Fever No Loss of Appetite No Night Sweats No Persistent Cough > 3 Weeks No Weight Loss No Arrival Mode Ambulatory Accompanied By On Arrival Family Contact Name and Number Braulio - GI Prep Sutab GI Prep Completed Yes GI Prep Results Yellow, Clear Barriers to Learning None evident Teaching Method Explanation, Printed materials Preferred Spoken Language Panamanian Preferred Written Language Panamanian Information Given by Patient Patient's Current Physicians PCP Micheal Discharge To, Anticipated Home independently Activity Status ADL Awake Standard Safety ID band on, Call device within reach, Bed in low position, Wheels locked, Upper/Half-Length side-rails up, Safety level maintained Prev Test Positive/Diagnosis w/COVID-19 No Current Quarantine/Isolated any Illness No Any Contact with Sick Animals/Birds No Traveled Anywhere in Last 30 Days Yes Travel Where Within [facility] State(s) [place] [facility] N/A Personal Devices, Patient Valuables None Admission Note-Nursing Procedure/Therapy Intake . Assessment and Plan [place] [employer] Anesthesiologists (ASA) physical status classification: Class II. Anesthetic Preoperative Plan Anesthetic technique: MAC. Postoperative pain management: Per surgeon. Informed consent: signed by patient. Digitally Signed by RASHAD VELIZ on 09/17/2023 11:09 AM [facility]12-15-2023 Note Date of Service 09/17/2023 Chief Complaint Screening colonoscopy History of Present Illness This is a preprocedural/presurgical H&P. The patient was originally evaluated by Dianne Rivers, the PA. Please refer to her note also. I independently and personally performed a history and physical examination with this patient and repeated the villanueva components of the exam/history. I have reviewed her note. The patient was scheduled for endoscopy based on that visit and was evaluated by me prior to it. Voice recognition software was utilized for this document and may contain recognition errors inherent in that process. Not reporting any GI related symptoms. This is his first screening colonoscopy. Physical Exam Vitals and Measurements T: 36.4 C (Temporal Artery) HR: 91(Apical) RR: 13 BP: 160/95 SpO2: 98% HT: 180 cm WT: 81.8 kg BMI: 25.25 Weight Dosing Weight: 81.8 kg (09/17/23) General appearance: The patient is alert and oriented and in no apparent distress. Vital signs werereviewed. HEENT: Hearing is appropriate. Sclera are clear and nonicteric. Nares normal. Neck is free of lymphadenopathy. The trachea is midline. Chest: No supraclavicular lymphadenopathy. Lungs: Lungs are clear bilaterally. No rales or wheezing. Cardiac: No murmurs or gallops heard. Abdomen: Bowel sounds are present. The abdomen is soft, nontender. No palpable masses. No organomegaly. No inguinal lymphadenopathy. Rectal examination is deferred. Extremities: No cyanosis or clubbing. Neurology: No gross focal neurologic deficits. Integument: No telangiectasias or petechiae are seen. Lymphatic: No supraclavicular cervical inguinal adenopathy found Psychiatric examination: The patient is alert and oriented. Cognition seems appropriate. Recent andremote memory intact. Affect is appropriate. Lab Results No 36 Hour Lab Data Assessment/Plan Orders: Lactated Ringers Infusion 1,000 mL, Start: 09/17/23 10:15:00 EST, Rate: 20 mL/hr, 09/17/23 10:15:00EST Communication Order (scheduled) Communication Order (scheduled) Communication Order (scheduled) Consult to Anesthesia Sign Consent He is here for screening colonoscopy. Consent conference held. Problem List/Past Medical History Ongoing Cerumen impaction Diabetes mellitus Hypertension Need for hepatitis C screening test Screening for colon cancer Screening for prostate cancer Type 2 diabetes mellitus Historical No qualifying data Procedure/Surgical History No qualifying data available. 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 Digitally Signed by BJ KRAMER MD on 09/17/2023 11:02 AM [facility] No data available for this section [facility] Evaluation + Plan note Future Appointments Appointment Date:08/18/2024 10:00:00 AM Scheduled Provider:WOLF DREW DO Location:[facility] Appointment Type:PC OV Future Scheduled Tests Laboratory* Albumin/Creatinine Ratio, Random Urine 04/17/24 [facility] Evaluation + Plan note Future Appointments Appointment Date:03/06/2025 08:00:00 AM Scheduled Provider: Location:[facility] Appointment Type:MEDS - Diabetic Individual Visit Appointment Date:04/24/2025 08:00:00 AM Scheduled Provider: Location:[facility] Appointment Type:NUT Diet Visit Individual Appointment Date:04/24/2025 08:30:00 AM Scheduled Provider:WOLF DREW DO Location:[facility] Appointment Type:PC Wellness Annual Future Scheduled Tests Laboratory* Basic Metabolic Panel 01/23/25 * Lipid Profile 05/25/25 * Albumin/Creatinine Ratio, Random Urine 01/23/25 [facility] evaluation + Plan note Future Appointments Appointment Date:03/06/2025 08:00:00 AM Scheduled Provider: Location:[facility] Appointment Type:MEDS - Diabetic Individual Visit Appointment Date:04/24/2025 08:00:00 AM Scheduled Provider: Location:[facility] Appointment Type:NUT Diet Visit Individual Appointment Date:04/24/2025 08:30:00 AM Scheduled Provider:WOLF DREW DO Location:[facility] Appointment Type:PC Wellness Annual Future Scheduled Tests Laboratory* Basic Metabolic Panel 01/23/25 * Albumin/Creatinine Ratio, Random Urine 01/23/25 [facility] evaluation + Plan note Future Appointments Appointment Date:06/07/2025 08:00:00 AM Scheduled Provider: Location:[facility] Appointment Type:MEDS - Diabetic Individual Visit Appointment Date:08/24/2025 07:00:00 AM Scheduled Provider: Location:[facility] Appointment Type:PC Nurse Lab Appointment Date:08/27/2025 08:45:00 AM Scheduled Provider:WOLF DREW DO Location:[facility] Appointment Type:PC OV Future Scheduled Tests Laboratory* Prostate Specific Antigen 08/25/25 * A1C Hemoglobin 08/25/25 * Complete Blood Count 08/25/25 * Lipid Profile 08/25/25 * Albumin/Creatinine Ratio, Random Urine 08/25/25 * Complete Metabolic Panel 08/25/25 [facility] Evaluation + Plan note Future Appointments Appointment Date:08/24/2025 07:00:00 AM Scheduled Provider: Location:[facility] Appointment Type:PC Nurse Lab Appointment Date:08/27/2025 08:45:00 AM Scheduled Provider:WOLF DREW DO Location:[facility] Appointment Type:PC OV Future Scheduled Tests Laboratory* Prostate Specific Antigen 08/25/25 * A1C Hemoglobin 08/25/25 * Complete Blood Count 08/25/25 * Lipid Profile 08/25/25 * Albumin/Creatinine Ratio, Random Urine 08/25/25 * Complete Metabolic Panel 08/25/25 [facility] Evaluation noteNo assessment information available [facility] Work Phone: Hospital Discharge instructions No data available for this section [facility] Progress note No data available for this section [facility] Reason for referral (narrative)No reason for referral information [facility]WBelle[facility] Work Phone: Summary Purpose Family History No Family History Records Found No data available for this section No data available for this section No data available for this section No data available for this section No data available for this section No data available for this section No data available for this section No Family History Records FoundNo Family History Records Found Advance Directives No Advanced Directives Records FoundNo Advanced Directives Records FoundNo Advanced Directives Records Found Additional Source Comments Care Team (unrecognized sect ion and content) Team Status: Active Member Role Status Dates Dr. Sami Gustafson DPM Primary Care Provider Activ e Team Status: Inactive Member Role Status Dates Dr. Sami Gustafson DPM Primary Care Provider Activ e Start: December 20, 2024 End: December 20, 2024 Dr. Ragini Escamilla DPM Attending Provider Active Start: December 20, 2024 End: December 20, 2024 Care Team (unrecognized sect ion and content) Care Team Personnel Name: WOLF DREW DO Position: P4 Physician - Primary Care Member Role: Primary Care Physician Address: Address: [address] [place] [address] Care Team Related Persons Name: BRAULIO MCCORMICK Care Team Personnel Name: WOLF DREW DO Position: P4 Physician - Primary Care Member Role: Primary Care Physician Address: Address: [address] [place] [address] Care Team Related Persons Name: BRAULIO MCCORMICK (unrecognized sect ion and content) No Status Records FoundNo Status Records FoundNo Status Records Found INFORMATION SOURCE (unrecogn ized section and content) DATE CREATED AUTHOR 09/25/2023 [facility] ([place]) DATE CREATED AUTHOR AUTHOR'S ORGANIZ ATION 07/29/2025 [facility] DATE CREATED AUTHOR AUTHOR'S ORGANIZ ATION 07/29/2025 [facility] Goals (unrecognized section and content) Goals may be documented in a n alternate section FOR RECORDS PERTAINING TO PATIENTS WHO ARE OR HAVE BEEN ENROLLED IN A CHEMICAL DEPENDENCY/SUBSTANCEABUSE PROGRAM, SOME INFORMATION MAY BE OMITTED. This clinical summary was aggregated from multiple sources. Caution should be exercised in using it in the provision of clinical care. This summary normalizes information from multiple sources, and as a consequence, information in this document may materially change the coding, format and clinical context of patient data. In addition, data may be omitted in some cases. CLINICAL DECISIONS SHOULD BE BASED ON THE PRIMARY CLINICAL RECORDS. [employer] provides no warranty or guarantee of the accuracy or completeness of information in this document.
== END | disposition home or self-care (01) ==
LOC: LABSPEC 13:09
PROVIDERS: PCP Podiatrist Foot & Ankle Surgery; Referring Provider Podiatrist; Visit Provider Podiatrist
DX: L97.829 Non-pressure chronic ulcer of other part of left lower leg with unspecified severity (principal)
CPT/HCPCS: 87070; 87077; 87186; 87205